=== PATIENT | female | born 1960 | race Caucasian/White ===

== ENCOUNTER 2016-09-27 15:30 | Outpatient (CLI) | payer BC, OTHER | END 2016-09-27 15:31 | disposition home or self-care (01) | DX: M32.10 Systemic lupus erythematosus, organ or system involvement unspecified (principal) ==

== ENCOUNTER 2016-11-21 09:00 | Outpatient (CLI) | payer OTHER | END 2016-11-21 23:59 | disposition home or self-care (01) | DX: M25.561 Pain in right knee (principal) ==

== ENCOUNTER 2016-12-18 13:16 | Outpatient (CLI) | payer OTHER | END 2016-12-18 13:17 | disposition home or self-care (01) | LOC: RT 13:16 | PROVIDERS: ATTEND Orthopaedic Surgery | DX: Z01.818 Encounter for other preprocedural examination (principal) | CPT/HCPCS: 93005 ==

== ENCOUNTER 2017-01-09 14:28 | Outpatient (CLI) | payer OTHER ==
[2017-01-09 19:14] LABS: BASOPHILS % (AUTO) 0.7 %; EOSINOPHILS # (AUTO) 0.1 10^3/uL (0.0-0.7); EOSINOPHILS % (AUTO) 1.2 %; HCT - HEMATOCRIT 41.6 % (37.0-47.0); HGB - HEMOGLOBIN 13.5 g/dL (12.0-16.0); LYMPHOCYTES % (AUTO) 22.1 %; MEAN CORPUSCULAR HEMOGLOBIN 29.9 pg (27.0-31.0); MEAN CORPUSCULAR HGB CONC 32.5 g/dL (32.0-36.0); MEAN CORPUSCULAR VOLUME 92.2 fL (81.0-99.0); MEAN PLATELET VOLUME 8.4 fL (7.9-10.8); MONOCYTES # (AUTO) 0.3 10^3/uL (0.0-1.0); MONOCYTES % (AUTO) 6.5 %; NEUTROPHILS # (AUTO) 3.2 10^3/uL (1.5-6.6); NEUTROPHILS % (AUTO) 69.5 %; NUCLEATED RED BLOOD CELLS AUTO 0.1 /100WBC; RED BLOOD COUNT 4.51 10^6/uL (4.20-5.40); RED CELL DISTRIBUTION WIDTH 13.6 % (12.0-15.0); UNCORRECTED WHITE BLOOD COUNT 4.6 x10^3/uL; WHITE BLOOD COUNT 4.6 x10^3/uL (4.8-10.8)
[2017-01-09 19:25] LABS: ALBUMIN/GLOBULIN RATIO 1.9 (1.0-2.2); BILIRUBIN,TOTAL 0.4 mg/dL (0.2-1.0); BUN - BLOOD UREA NITROGEN 16 mg/dL (6-20); CALCIUM 9.7 mg/dL (8.5-10.3); CARBON DIOXIDE - CO2 30 mmol/L (21-32); CHLORIDE 105 mmol/L (101-111); CHOL/HDL RATIO 3.2 (<4.4); CHOLESTEROL 241 mg/dL; CREATININE 0.9 mg/dL (0.4-1.0); GFR - MDRD 65 (>89); GLUCOSE 85 mg/dL (70-100); HDL CHOLESTEROL 75 mg/dL; LDL/HDL RATIO 1.9 (<4.4); POTASSIUM 3.7 mmol/L (3.5-5.0); SODIUM 142 mmol/L (135-145); TOTAL PROTEIN 7.2 g/dL (6.7-8.2); TRIGLYCERIDES 133 mg/dL; VLDL CHOLESTEROL 27 mg/dL
== END 2017-01-09 14:29 | disposition home or self-care (01) ==
LOC: LAB.WCP 14:28
PROVIDERS: ATTEND Psychiatry & Neurology Psychiatry
DX: F43.12 Post-traumatic stress disorder, chronic (principal); F41.9 Anxiety disorder, unspecified; F90.9 Attention-deficit hyperactivity disorder, unspecified type; G47.00 Insomnia, unspecified
CPT/HCPCS: 36415; 80053; 80061; 85025

== ENCOUNTER 2017-01-18 08:00 | Outpatient (CLI) | payer OTHER ==
[2017-01-18 18:53] LABS: BILIRUBIN,URINE NEGATIVE (NEGATIVE); PH,URINE 6.5 PH (5.0-7.5)
[2017-01-18 18:59] LABS: BASOPHILS % (AUTO) 0.6 %; EOSINOPHILS # (AUTO) 0.1 10^3/uL (0.0-0.7); EOSINOPHILS % (AUTO) 1.3 %; HCT - HEMATOCRIT 39.2 % (37.0-47.0); LYMPHOCYTES # (AUTO) 1.1 10^3/uL (1.5-3.5); LYMPHOCYTES % (AUTO) 25.9 %; MEAN CORPUSCULAR HEMOGLOBIN 30.4 pg (27.0-31.0); MEAN CORPUSCULAR HGB CONC 33.1 g/dL (32.0-36.0); MEAN CORPUSCULAR VOLUME 91.7 fL (81.0-99.0); MEAN PLATELET VOLUME 8.8 fL (7.9-10.8); MONOCYTES # (AUTO) 0.3 10^3/uL (0.0-1.0); MONOCYTES % (AUTO) 7.3 %; NEUTROPHILS # (AUTO) 2.8 10^3/uL (1.5-6.6); NEUTROPHILS % (AUTO) 64.9 %; NUCLEATED RED BLOOD CELLS AUTO 0.1 /100WBC; RED BLOOD COUNT 4.28 10^6/uL (4.20-5.40); RED CELL DISTRIBUTION WIDTH 13.5 % (12.0-15.0); UNCORRECTED WHITE BLOOD COUNT 4.3 x10^3/uL; WHITE BLOOD COUNT 4.3 x10^3/uL (4.8-10.8)
[2017-01-18 19:18] LABS: ALBUMIN/GLOBULIN RATIO 1.7 (1.0-2.2); BILIRUBIN,TOTAL 0.6 mg/dL (0.2-1.0); CALCIUM 9.5 mg/dL (8.5-10.3); CREATININE 0.8 mg/dL (0.4-1.0); POTASSIUM 4.1 mmol/L (3.5-5.0); TOTAL PROTEIN 7.4 g/dL (6.7-8.2)
[2017-01-20 12:03] LABS: COMPLEMENT COMPONENT C3C 135 mg/dL (90-180); COMPLEMENT COMPONENT C4C 30 mg/dL (16-47)
[2017-01-20 21:24] LABS: TEST RESULT REPORT (())
== END 2017-01-18 08:01 | disposition home or self-care (01) ==
LOC: LAB.WCP 08:00
PROVIDERS: ATTEND Internal Medicine Rheumatology
DX: M32.10 Systemic lupus erythematosus, organ or system involvement unspecified (principal); M17.11 Unilateral primary osteoarthritis, right knee
CPT/HCPCS: 36415; 80048; 80053; 81001; 81599; 85025; 85651; 86160; 86225

== ENCOUNTER 2017-01-19 12:53 | Outpatient (CLI) | payer OTHER | END 2017-01-19 12:54 | disposition critical access hospital (66) | LOC: EMS 12:53 | PROVIDERS: ATTEND Surgery | DX: S69.90XA Unspecified injury of unspecified wrist, hand and finger(s), initial encounter (principal); S01.81XA Laceration without foreign body of other part of head, initial encounter; W01.0XXA Fall on same level from slipping, tripping and stumbling without subsequent striking against object, initial encounter; Y93.01 Activity, walking, marching and hiking; Y92.219 Unspecified school as the place of occurrence of the external cause | CPT/HCPCS: A0425; A0429 ==

== ENCOUNTER 2017-01-19 13:09 | Emergency (ER) | payer OTHER ==
[2017-01-19] MEDS ORDERED: HYDROcod/ACETAM 5/325 MG TABLET ONE (14:45)
[2017-01-19] MEDS ORDERED: TETANUS/DIPHTHERIA/PERTUSSIS 0.5 ML SYRINGE IM ONE (14:46)
[2017-01-19] MEDS: HYDROcod/ACETAM 5/325 MG TABLET PO STA (14:48)
[2017-01-19] MEDS: TETANUS/DIPHTHERIA/PERTUSSIS 0.5 ML SYRINGE IM ONE (14:48)
--- NOTE | 2017-01-19 15:32 | XRAY Preliminary Report ---
Exam: XR Wrist 4 View RT IMPRESSION: Normal wrist radiography. [facility] SITE ID: [id number]
--- NOTE | 2017-01-19 15:34 | XRAY Report ---
EXAM: RIGHT WRIST RADIOGRAPHY EXAM DATE: 01/19/2017 03:20 PM. CLINICAL HISTORY: GLF, right wrist injury. COMPARISON: None. TECHNIQUE: 4 views. FINDINGS: Bones: Normal. No fractures or bone lesions. Joints: Normal. No subluxations. Soft Tissues: Normal. No soft tissue swelling. IMPRESSION: Normal wrist radiography. [facility] Referring Provider Line: [phone] SITE ID: [id number]
--- NOTE | 2017-01-19 15:37 | CT Preliminary Report ---
Exam: CT Head W/O IMPRESSION: 1. No acute intracranial abnormality. 2. Encephalomalacia in the left frontal lobe is redemonstrated and similar to the prior brain MRI jennifer ed 02/14/2013 given differences in technique. [facility] SITE ID: [id number]
--- NOTE | 2017-01-19 15:39 | CT Report ---
EXAM: CT HEAD EXAM DATE: 01/19/2017 03:06 PM. CLINICAL HISTORY: Fall, hitting head. Takes Diclopramide. COMPARISON: Brain MRI dated 02/14/2013. TECHNIQUE: Multiaxial CT images were obtained from the foramen magnum to the vertex. IV contrast: Non e. Reformats: Coronal. In accordance with CT protocol optimization, one or more of the following dose reduction techniques w ere utilized for this exam: automated exposure control, adjustment of mA and/or KV based on patient s ize, or use of iterative reconstructive technique. FINDINGS: Parenchyma: Encephalomalacia in the right temporal lobe is redemonstrated and similar to the prior ex amination given differences in technique. No acute intracranial abnormality. The dean-white matter di fferentiation is otherwise well maintained. No mass effect or midline shift. No intracranial hemorrha ge. Extraaxial Spaces: Normal for age. No subdural or epidural collections identified. Ventricles: Normal in size and position. Sinuses: Imaged paranasal sinuses, orbits, and mastoids show no significant abnormality. Bones: No evidence of fracture or calvarial defect. Other: None. IMPRESSION: 1. No acute intracranial abnormality. 2. Encephalomalacia in the left frontal lobe is redemonstrated and similar to the prior brain MRI jennifer ed 02/14/2013 given differences in technique. [facility] Referring Provider Line: [phone] SITE ID: [id number]
--- NOTE | 2017-01-19 16:20 | ED Physician Documentation ---
PD HPI Fall - Stated complaint Stated Complaint: GLF - Chief complaint Chief Complaint: Laceration - History obtained from History obtained from: Patient - History of Present Illness Mechanism of injury: Tripped Fall distance: Standing position Where injury occurred: School Timing - onset: How many hours ago (Just prior to arrival.) Injury(ies) location: Head, Right Upper Extremity Quality of pain: Aching Associated symptoms: No: LOC, AMS, Neck pain, Nausea / vomiting - Additional information Additional information: The patient is a 56-year-old female who tripped on uneven concrete just prior to arrival, hitting her head on the sidewalk. She denies loss of consciousness , nausea or vomiting. In addition to hitting her head, she also complains of pain in her right wrist. She is left-hand dominant. Her last tetanus booster was reportedly about 8 years ago. Her past medical history is significant for lupus and for traumatic brain injury. She reports being on generic form of Plavix. Review of Systems Constitutional: denies: Fever Eyes: denies: Decreased vision Ears: denies: Ear pain Nose: denies: Congestion Throat: denies: Sore throat Cardiac: denies: Chest pain / pressure Respiratory: denies: Dyspnea GI: denies: Abdominal Pain, Nausea, Vomiting : denies: Dysuria, Incontinent Skin: reports: Abrasion (s) (right forehead) Musculoskeletal: reports: Extremity pain (right wrist). 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, Other - Present Medications Home Medications: Ambulatory Orders Medication Instructions Recorded Confirmed Atomoxetine HCl [Strattera] 25 mg PO DAILY 03/31/13 11/23/15 QUEtiapine [SEROquel] 100 mg PO HS 03/31/13 11/23/15 lamoTRIgine [LaMICtal] 200 mg PO DAILY 03/31/13 11/23/15 Hydroxychloroquine [Plaquenil] 200 mg PO BID 05/27/13 11/23/15 Diclofenac Sodium/Misoprostol 75 mg PO DAILY 09/02/13 11/23/15 [Arthrotec EC 75 mg-200 Mcg Tab] amLODIPine [Norvasc] 5 mg PO DAILY 09/02/13 11/23/15 Sertraline HCl [Zoloft] 50 mg PO DAILY 12/02/13 11/23/15 Pilocarpine HCl 5 mg PO TID 06/02/14 11/23/15 Cholecalciferol (Vitamin D3) 5,000 units PO DAILY 10/19/15 11/23/15 [Vitamin D3] HYDROcod/ACETAM 5/325 [Vicodin 1 - 2 ea PO Q6H PRN #20 tablet 01/19/17 5/325] - Allergies Allergies/Adverse Reactions: Allergies Allergy/AdvReac Type Severity Reaction Status Date / Time Sulfa (Sulfonamide Allergy Intermediate Hives Verified 01/19/17 13:35 Antibiotics) amoxicillin Allergy Nausea Verified 01/19/17 13:35 - Living Situation Living Situation: reports: With spouse/s.o. - Social History Does the pt smoke?: No Smoking Status: Never smoker Does the pt drink ETOH?: No Does the pt have substance abuse?: No - Immunizations Immunizations are current?: Yes Immunizations: TDAP current <10years (Last tetanus booster about 8 years ago.) - POLST Patient has POLST: No POLST Status: Full Code PD ED PE NORMAL - Vitals Vital signs reviewed: Yes (Borderline systolic hypertension initially.) - General General: Alert and oriented X 3, Well developed/nourished - HEENT HEENT: PERRL, EOMI, Ears normal, Pharynx benign, Other (There are abrasions at the right side of the forehead and eyebrow. There are no lacerations that warrant suturing. There is no bony step-off palpated.) - Neck Neck: No bony TTP - Cardiac Cardiac: RRR, No murmur - Respiratory Respiratory: No respiratory distress, Clear bilaterally - Abdomen Abdomen: Soft, Non tender - Back Back: No CVA TTP, No spinal TTP - Derm Derm: No rash - Extremities Extremities: Other (There is slight swelling of the right wrist, with tenderness to palpation of the wrist, radially more than ulnarly. She is able to flex and extend the wrist, as well as supinate and forearm. Distal neurovascular is intact.) - Neuro Neuro: Alert and oriented X 3, No motor deficit, Normal speech Results - Vitals Vitals: Oxygen O2 Source Room air - Rads (name of study) Head CT w/o Radiology: Prelim report reviewed, EMP read contemporaneously, See rad report ( No acute intracranial abnormality. Encephalomalacia in the left frontal lobe is redemonstrated and similar to prior brain MRI dated 02/14/2013, given differences in technique.) Right Wrist Radiology: Prelim report reviewed, EMP read contemporaneously, See rad report ( Normal wrist radiography.) PD MEDICAL DECISION MAKING - ED course Complexity details: reviewed old records, reviewed results, re-evaluated patient , considered differential, d/w patient, d/w family ED course: The patient's presentation is significant for a fall that resulted in contusion with abrasion to the right forehead, and contusion/sprain of the right wrist. Head CT without contrast reveals no acute intracranial abnormality, but does reveal right frontal lobe encephalomalacia, unchanged from previous imaging study of 2012. X-ray of the right wrist reveals no bony abnormality. Treatment in the emergency department included administration of Vicodin one tablet orally, and application of a right arm sling. A tetanus booster was administered. She is being discharged with prescription for Vicodin, 20 tablets. I discussed with her and her the expected course of healing, symptomatic treatment and outpatient follow-up, as well as potentially worrisome signs or symptoms that should prompt reevaluation in the emergency department. Departure - Departure Disposition: 01 Home, Self Care Clinical Impression: Fall Qualifiers: Encounter type: initial encounter Qualified Code(s): W19.XXXA - Unspecified fall, initial encounter Forehead contusion Qualifiers: Encounter type: initial encounter Qualified Code(s): S00.83XA - Contusion of other part of head, initial encounter Contusion of right forearm Qualifiers: Encounter type: initial encounter Qualified Code(s): S50.11XA - Contusion of right forearm, initial encounter Condition: Stable Instructions: ED Contusion Scalp, ED Contusion Upper Ext Follow-Up: Fara Fung PA-C [Primary Care Provider] - Prescriptions: HYDROcod/ACETAM 5/325 [Vicodin 5/325] 1 - 2 ea PO Q6H PRN #20 tablet PRN Reason: Pain Comments: Apply icepack to the sore areas intermittently for the next 2 days. You can use Vicodin as prescribed if needed for pain. You can also use ibuprofen, up to 800 mg 3 times daily for its anti- inflammatory effect. Follow up with your primary physician within one to 2 weeks if not completely resolved. Return to the emergency department if you develop increasing headache, persistent vomiting, any sign of infection, or otherwise worsening symptoms. Discharge Date/Time: 01/19/17 16:43
[2017-01-19 16:43] VITALS: BP 141/90
== END 2017-01-19 16:43 | disposition home or self-care (01) ==
LOC: EDUNIT# → ED 13:09
DX: S00.83XA Contusion of other part of head, initial encounter (principal); S50.11XA Contusion of right forearm, initial encounter; S00.81XA Abrasion of other part of head, initial encounter; S63.501A Unspecified sprain of right wrist, initial encounter; W01.0XXA Fall on same level from slipping, tripping and stumbling without subsequent striking against object, initial encounter; Y93.01 Activity, walking, marching and hiking; Y92.219 Unspecified school as the place of occurrence of the external cause; Z23 Encounter for immunization; I10 Essential (primary) hypertension; Z87.820 Personal history of traumatic brain injury; M32.9 Systemic lupus erythematosus, unspecified; M19.90 Unspecified osteoarthritis, unspecified site
CPT/HCPCS: 70450; 90471; 99283

== ENCOUNTER 2017-07-04 16:00 | Outpatient (CLI) | payer BC, OTHER ==
[2017-07-04 18:54] LABS: BILIRUBIN,URINE NEGATIVE (NEGATIVE)
[2017-07-04 19:33] LABS: ALBUMIN/GLOBULIN RATIO 1.6 (1.0-2.2); BILIRUBIN,TOTAL 0.5 mg/dL (0.2-1.0); CALCIUM 9.2 mg/dL (8.5-10.3); CREATININE 0.7 mg/dL (0.4-1.0); POTASSIUM 3.8 mmol/L (3.5-5.0); TOTAL PROTEIN 7.5 g/dL (6.7-8.2)
== END 2017-07-04 16:01 ==
LOC: LAB.WCP 16:00
PROVIDERS: ATTEND Internal Medicine Rheumatology
DX: M32.10 Systemic lupus erythematosus, organ or system involvement unspecified (principal)
CPT/HCPCS: 36415; 80053; 81001; 85651; 86160

== ENCOUNTER 2017-08-09 17:15 | Outpatient (CLI) | payer BC ==
--- NOTE | 2017-08-10 12:11 | Ultrasound Report ---
DATE OF SERVICE: 08/09/2017 ULTRASOUND OF ANKLE BRACHIAL INDEX: 08/09/2017 COMPARISON: None. INDICATION: Calf pain, right. TECHNIQUE: Sonographic evaluation of the lower extremities and brachial arteries. FINDINGS: Peak systolic velocities are as follows in cm per second. RIGHT: Posterior tibial artery 67. Distal peroneal artery 78. LEFT: Posterior tibial artery 72. Distal peroneal artery 130. BLOOD PRESSURES WERE FOLLOWS: RIGHT: Brachial artery 118/53. ORACLE BUSINESS INTELLIGENCE DEVELOPER 146/67. LEFT: Brachial artery 128/68. ORACLE BUSINESS INTELLIGENCE DEVELOPER 143/62. Ankle-brachial indices: 1. Right 1.1. 2. Left 1.1. IMPRESSION: NORMAL ABIs BILATERALLY. TD: 08/10/2017 12:54 [facility]
== END 2017-08-09 17:16 | disposition home or self-care (01) ==
LOC: DI 17:15
PROVIDERS: ATTEND Physician Assistant Medical
DX: M79.661 Pain in right lower leg (principal)
CPT/HCPCS: 93922

== ENCOUNTER 2017-12-20 08:00 | Outpatient (CLI) | payer BC ==
[2017-12-20 12:43] LABS: BASOPHILS % (AUTO) 0.8 %; EOSINOPHILS % (AUTO) 1.4 %; HGB - HEMOGLOBIN 13.4 g/dL (12.0-16.0); LYMPHOCYTES % (AUTO) 24.2 %; MEAN CORPUSCULAR HEMOGLOBIN 28.8 pg (27.0-31.0); MEAN CORPUSCULAR HGB CONC 32.7 g/dL (32.0-36.0); MEAN CORPUSCULAR VOLUME 87.9 fL (81.0-99.0); MEAN PLATELET VOLUME 8.3 fL (7.9-10.8); MONOCYTES % (AUTO) 7.8 %; NEUTROPHILS % (AUTO) 65.8 %; PLT - PLATELET COUNT 184 10^3/uL (130-450); RED BLOOD COUNT 4.67 10^6/uL (4.20-5.40); WHITE BLOOD COUNT 2.8 x10^3/uL (4.8-10.8)
[2017-12-20 12:52] LABS: ABNORMAL LYMPHS % (MANUAL) 0 %; BAND NEUTROPHILS % (MANUAL) 0 %
[2017-12-20 13:02] LABS: ALBUMIN 4.5 g/dL (3.2-5.5); ALBUMIN/GLOBULIN RATIO 1.6 (1.0-2.2); BILIRUBIN,TOTAL 0.6 mg/dL (0.2-1.0); CALCIUM 9.2 mg/dL (8.5-10.3); CREATININE 0.6 mg/dL (0.4-1.0); TOTAL PROTEIN 7.4 g/dL (6.7-8.2)
[2017-12-20 13:04] LABS: BILIRUBIN,URINE NEGATIVE (NEGATIVE); GLUCOSE, URINE (UA) NEGATIVE (NEGATIVE); KETONES,URINE (UA) NEGATIVE (NEGATIVE); LEUKOCYTE ESTERASE, URINE MODERATE (NEGATIVE); NITRITE,URINE NEGATIVE (NEGATIVE); OCCULT BLOOD,URINE NEGATIVE (NEGATIVE); PROTEIN,URINE NEGATIVE (NEGATIVE); UROBILINOGEN,URINE 0.2 (NORMAL) E.U./dL (NORMAL)
[2017-12-20 13:05] LABS: CHOL/HDL RATIO 3.3 (<4.4); CHOLESTEROL 245 mg/dL; CLARITY,URINE HAZY (CLEAR); HDL CHOLESTEROL 74 mg/dL; LDL CHOLESTEROL,CALCULATED 156 mg/dL; LDL/HDL RATIO 2.1 (<4.4); VLDL CHOLESTEROL 15 mg/dL
[2017-12-20 13:21] LABS: RBC,URINE 0-5 /HPF (0-5)
[2017-12-20 13:22] LABS: AMORPHOUS SEDIMENT,UR Marked /LPF; BACTERIA,URINE Few /HPF (None Seen); CRYSTALS,URINE 0-2 Uric Acid /LPF; MUCUS,URINE Marked Strands; SQUAMOUS EPITHELIAL CELL,UR FEW Squamous (<= Few)
[2017-12-20 14:05] LABS: DIFFERENTIAL COMMENT MANUAL DIFFERENTIAL; LYMPHOCYTES # (MANUAL) 0.8 10^3/uL (1.5-3.5); LYMPHOCYTES % (MANUAL) 25 %; MONOCYTES # (MANUAL) 0.2 10^3/uL (0.0-1.0); NEUTROPHILS # (MANUAL) 1.8 10^3/uL (1.5-6.6); NEUTROPHILS % (MANUAL) 64 %
[2017-12-22 12:12] LABS: COMPLEMENT COMPONENT C3C 143 mg/dL (83-193); COMPLEMENT COMPONENT C4C 33 mg/dL (15-57)
== END 2017-12-20 08:01 ==
LOC: LAB.WCP 08:00
PROVIDERS: ATTEND Physician Assistant Medical
DX: Z00.00 Encounter for general adult medical examination without abnormal findings (principal); M32.10 Systemic lupus erythematosus, organ or system involvement unspecified
CPT/HCPCS: 36415; 80053; 80061; 81001; 83721; 84443; 85025; 85651; 86160

== ENCOUNTER 2018-01-09 08:00 | Outpatient (CLI) | payer BC ==
[2018-01-09 19:18] LABS: BASOPHILS % (AUTO) 0.8 %; EOSINOPHILS % (AUTO) 0.6 %; HGB - HEMOGLOBIN 12.9 g/dL (12.0-16.0); LYMPHOCYTES # (AUTO) 1.2 10^3/uL (1.5-3.5); LYMPHOCYTES % (AUTO) 20.6 %; MEAN CORPUSCULAR HEMOGLOBIN 28.7 pg (27.0-31.0); MEAN CORPUSCULAR HGB CONC 32.6 g/dL (32.0-36.0); MEAN CORPUSCULAR VOLUME 87.9 fL (81.0-99.0); MEAN PLATELET VOLUME 8.3 fL (7.9-10.8); MONOCYTES # (AUTO) 0.5 10^3/uL (0.0-1.0); MONOCYTES % (AUTO) 8.7 %; NEUTROPHILS # (AUTO) 3.9 10^3/uL (1.5-6.6); NEUTROPHILS % (AUTO) 69.3 %; PLT - PLATELET COUNT 208 10^3/uL (130-450); RED BLOOD COUNT 4.49 10^6/uL (4.20-5.40); RED CELL DISTRIBUTION WIDTH 14.5 % (12.0-15.0); WHITE BLOOD COUNT 5.6 x10^3/uL (4.8-10.8)
== END 2018-01-09 08:01 | disposition home or self-care (01) ==
LOC: LAB.WCP 08:00
PROVIDERS: ATTEND Internal Medicine Rheumatology
DX: D72.819 Decreased white blood cell count, unspecified (principal)
CPT/HCPCS: 36415; 85025

== ENCOUNTER 2018-04-29 11:00 | Outpatient (CLI) | payer BC ==
[2018-04-29 18:54] LABS: BASOPHILS % (AUTO) 0.4 %; EOSINOPHILS % (AUTO) 0.3 %; HGB - HEMOGLOBIN 13.3 g/dL (12.0-16.0); LYMPHOCYTES # (AUTO) 0.8 10^3/uL (1.5-3.5); LYMPHOCYTES % (AUTO) 15.8 %; MEAN CORPUSCULAR HEMOGLOBIN 29.1 pg (27.0-31.0); MEAN CORPUSCULAR HGB CONC 32.7 g/dL (32.0-36.0); MEAN CORPUSCULAR VOLUME 89.1 fL (81.0-99.0); MEAN PLATELET VOLUME 8.3 fL (7.9-10.8); MONOCYTES # (AUTO) 0.2 10^3/uL (0.0-1.0); MONOCYTES % (AUTO) 3.6 %; NEUTROPHILS # (AUTO) 4.2 10^3/uL (1.5-6.6); NEUTROPHILS % (AUTO) 79.9 %; PLT - PLATELET COUNT 217 10^3/uL (130-450); RED BLOOD COUNT 4.57 10^6/uL (4.20-5.40); RED CELL DISTRIBUTION WIDTH 14.3 % (12.0-15.0); WHITE BLOOD COUNT 5.2 x10^3/uL (4.8-10.8)
[2018-04-29 18:55] LABS: BILIRUBIN,URINE NEGATIVE (NEGATIVE); GLUCOSE, URINE (UA) NEGATIVE (NEGATIVE); KETONES,URINE (UA) TRACE mg/dL (NEGATIVE); LEUKOCYTE ESTERASE, URINE MODERATE (NEGATIVE); NITRITE,URINE NEGATIVE (NEGATIVE); OCCULT BLOOD,URINE NEGATIVE (NEGATIVE); PROTEIN,URINE TRACE mg/dL (NEGATIVE); UROBILINOGEN,URINE 0.2 (NORMAL) E.U./dL (NORMAL)
[2018-04-29 19:15] LABS: CLARITY,URINE HAZY (CLEAR)
[2018-04-29 19:16] LABS: BACTERIA,URINE Few /HPF (None Seen); CRYSTALS,URINE >50 Calcium Oxalate /LPF; RBC,URINE 0-5 /HPF (0-5); SQUAMOUS EPITHELIAL CELL,UR FEW Squamous (<= Few)
[2018-04-29 19:18] LABS: ALBUMIN 4.6 g/dL (3.2-5.5); ALBUMIN/GLOBULIN RATIO 1.5 (1.0-2.2); ALKALINE PHOSPHATASE 87 IU/L (42-121); ALT ALANINE AMINOTRANSFERASE < 10 IU/L (10-60); AST ASPARTATE AMINOTRANSFERASE 24 IU/L (10-42); BILIRUBIN,TOTAL 0.5 mg/dL (0.2-1.0); BUN - BLOOD UREA NITROGEN 16 mg/dL (6-20); CALCIUM 9.4 mg/dL (8.5-10.3); CARBON DIOXIDE - CO2 28 mmol/L (21-32); CHLORIDE 101 mmol/L (101-111); CREATININE 0.9 mg/dL (0.4-1.0); GFR - MDRD 64 (>89); GLUCOSE 76 mg/dL (70-100); SODIUM 139 mmol/L (135-145); TOTAL PROTEIN 7.6 g/dL (6.7-8.2)
[2018-04-29 19:40] LABS: CHOL/HDL RATIO 2.7 (<4.4); CHOLESTEROL 226 mg/dL; HDL CHOLESTEROL 85 mg/dL; LDL CHOLESTEROL,CALCULATED 125 mg/dL; LDL/HDL RATIO 1.5 (<4.4); VLDL CHOLESTEROL 16 mg/dL
[2018-04-29 20:10] LABS: RHEUMATOID FACTOR NEGATIVE (Negative)
[2018-05-01 15:50] LABS: COMPLEMENT COMPONENT C3C 157 mg/dL (83-193); COMPLEMENT COMPONENT C4C 32 mg/dL (15-57)
[2018-05-01 21:54] LABS: CYCLIC CITRULL PEPTIDE CCP IGG <16 UNITS
== END 2018-04-29 11:01 | disposition home or self-care (01) ==
LOC: LAB.WCP 11:00
PROVIDERS: ATTEND Internal Medicine Rheumatology
DX: M32.10 Systemic lupus erythematosus, organ or system involvement unspecified (principal); M25.50 Pain in unspecified joint
CPT/HCPCS: 36415; 80053; 80061; 81001; 83721; 85025; 85651; 86160; 86200; 86430

== ENCOUNTER 2018-09-20 15:22 | Outpatient (CLI) | payer BC ==
--- NOTE | 2018-09-24 08:39 | Mammography Report ---
Reason: SCREENING MAMMO Procedure Date: 09/20/2018 Accession Number: [id number] / [id number] Procedure: MGN - Screening Mammo Dig Bilat CPT Code: FULL RESULT: EXAM: Screening Mammo Dig Bilat DATE: 09/20/2018 3:51 PM CLINICAL HISTORY: Screening encounter. History of late childbearing. TECHNIQUE: Bilateral CC and MLO views were obtained. COMPARISON: 07/15/2015 through 05/28/2010. FINDINGS: The breasts demonstrate scattered fibroglandular densities bilaterally. In the left breast on the CC view 8 cm deep to the nipple laterally is a developing asymmetry with possible correlate 8 cm from the nipple in the upper left breast on the MLO view which requires additional spot views and possibly ultrasound for further characterization. No suspicious masses, clustered microcalcifications, or regions of architectural distortion are identified. IMPRESSION: Incomplete examination RECOMMENDATION: Additional evaluation of the left lateral breast with spot views and possibly ultrasound as above. BIRADS CATEGORY 0: Incomplete examination STANDARD QUALIFYING STATEMENTS: 1. This examination was reviewed with the aid of Computer-Aided Detection (CAD). 2. A negative or benign imaging report should not delay biopsy if clinically suspicious findings are present. Consider surgical consultation if warrented. More than 5% of cancers are not identified by imaging. 3. Dense breasts may obscure an underlying neoplasm.
== END 2018-09-20 15:23 | disposition home or self-care (01) ==
LOC: DI.N 15:22
DX: Z12.31 Encounter for screening mammogram for malignant neoplasm of breast (principal); R92.8 Other abnormal and inconclusive findings on diagnostic imaging of breast
CPT/HCPCS: 77067

== ENCOUNTER 2018-10-04 07:48 | Outpatient (CLI) | payer BC ==
--- NOTE | 2018-10-04 09:18 | Mammography Report ---
Reason: 6 MO F/U - ABN MAMMO Procedure Date: 10/04/2018 Accession Number: [id number] / [id number] Procedure: PASTORA - Diag Special Views Dig LT CPT Code: FULL RESULT: EXAM: Diag Special Views Dig LT DATE: 10/04/2018 8:44 AM CLINICAL HISTORY: Diagnostic examination. History of late childbearing. The patient returns for further evaluation of a left breast developing asymmetry. TECHNIQUE: Left breast CC, spot CC, ML and spot MLO views were obtained. COMPARISON: 09/20/2018 through 05/28/2010. FINDINGS: The left breast demonstrates scattered fibroglandular elements. The previously identified developing asymmetry 8 cm from the left breast nipple resolves with spot views and is not present on 3-D imaging, evaluation is consistent with benign overlap of normal breast tissue. No suspicious masses, architectural distortion or calcifications are identified. IMPRESSION: Benign findings RECOMMENDATION: Recommend routine annual Screening mammography unless otherwise clinically indicated. BIRADS CATEGORY 2: Benign findings STANDARD QUALIFYING STATEMENTS: 1. This examination was not reviewed with the aid of Computer-Aided Detection (CAD). 2. A negative or benign imaging report should not delay biopsy if clinically suspicious findings are present. Consider surgical consultation if warrented. More than 5% of cancers are not identified by imaging. 3. Dense breasts may obscure an underlying neoplasm. 4. This examination was reviewed with the aid of 3D imaging (tomography).
== END 2018-10-04 07:49 | disposition home or self-care (01) ==
LOC: DI 07:48
PROVIDERS: ATTEND Physician Assistant Medical
DX: N63.20 Unspecified lump in the left breast, unspecified quadrant (principal); N64.89 Other specified disorders of breast; M32.10 Systemic lupus erythematosus, organ or system involvement unspecified
CPT/HCPCS: 36415; 80053; 81001; 85025; 85651; 86160

== ENCOUNTER 2018-10-04 08:49 | Outpatient (CLI) | payer BC ==
[2018-10-04 09:28] LABS: BASOPHILS % (AUTO) 0.8 %; EOSINOPHILS # (AUTO) 0.1 10^3/uL (0.0-0.7); HGB - HEMOGLOBIN 13.5 g/dL (12.0-16.0); LYMPHOCYTES % (AUTO) 33.8 %; MEAN CORPUSCULAR HEMOGLOBIN 28.3 pg (27.0-31.0); MEAN CORPUSCULAR HGB CONC 32.6 g/dL (32.0-36.0); MEAN CORPUSCULAR VOLUME 86.7 fL (81.0-99.0); MEAN PLATELET VOLUME 7.8 fL (7.9-10.8); MONOCYTES # (AUTO) 0.3 10^3/uL (0.0-1.0); MONOCYTES % (AUTO) 8.5 %; NEUTROPHILS # (AUTO) 1.6 10^3/uL (1.5-6.6); NEUTROPHILS % (AUTO) 54.9 %; PLT - PLATELET COUNT 193 10^3/uL (130-450); RED BLOOD COUNT 4.77 10^6/uL (4.20-5.40)
[2018-10-04 09:35] LABS: BILIRUBIN,URINE NEGATIVE (NEGATIVE); GLUCOSE, URINE (UA) NEGATIVE (NEGATIVE); KETONES,URINE (UA) NEGATIVE (NEGATIVE); LEUKOCYTE ESTERASE, URINE SMALL (NEGATIVE); NITRITE,URINE NEGATIVE (NEGATIVE); OCCULT BLOOD,URINE NEGATIVE (NEGATIVE); PROTEIN,URINE NEGATIVE (NEGATIVE); UROBILINOGEN,URINE 0.2 (NORMAL) E.U./dL (NORMAL)
[2018-10-04 09:53] LABS: CLARITY,URINE CLEAR (CLEAR); RBC,URINE 0-5 /HPF (0-5)
[2018-10-04 09:54] LABS: BACTERIA,URINE Rare /HPF (None Seen); MUCUS,URINE Few Strands; SQUAMOUS EPITHELIAL CELL,UR FEW Squamous (<= Few)
[2018-10-04 09:56] LABS: ALBUMIN 4.5 g/dL (3.2-5.5); ALBUMIN/GLOBULIN RATIO 1.3 (1.0-2.2); BILIRUBIN,TOTAL 0.5 mg/dL (0.2-1.0); CALCIUM 9.4 mg/dL (8.5-10.3); CREATININE 0.6 mg/dL (0.4-1.0); TOTAL PROTEIN 7.9 g/dL (6.7-8.2)
== END 2018-10-04 08:50 | disposition home or self-care (01) ==
LOC: LAB 08:49
PROVIDERS: ATTEND Internal Medicine Rheumatology
DX: M32.10 Systemic lupus erythematosus, organ or system involvement unspecified (principal)
CPT/HCPCS: 36415; 80053; 81001; 85025; 85651; 86160

== ENCOUNTER 2018-10-23 08:00 | Outpatient (CLI) | payer BC ==
[2018-10-23 19:19] LABS: BASOPHILS % (AUTO) 0.6 %; EOSINOPHILS % (AUTO) 1.1 %; HGB - HEMOGLOBIN 13.9 g/dL (12.0-16.0); LYMPHOCYTES # (AUTO) 1.1 10^3/uL (1.5-3.5); LYMPHOCYTES % (AUTO) 31.6 %; MEAN CORPUSCULAR HEMOGLOBIN 28.5 pg (27.0-31.0); MEAN CORPUSCULAR HGB CONC 32.5 g/dL (32.0-36.0); MEAN CORPUSCULAR VOLUME 87.8 fL (81.0-99.0); MEAN PLATELET VOLUME 8.1 fL (7.9-10.8); MONOCYTES # (AUTO) 0.3 10^3/uL (0.0-1.0); MONOCYTES % (AUTO) 8.8 %; NEUTROPHILS # (AUTO) 1.9 10^3/uL (1.5-6.6); NEUTROPHILS % (AUTO) 57.9 %; PLT - PLATELET COUNT 199 10^3/uL (130-450); RED BLOOD COUNT 4.88 10^6/uL (4.20-5.40); RED CELL DISTRIBUTION WIDTH 14.6 % (12.0-15.0); WHITE BLOOD COUNT 3.3 x10^3/uL (4.8-10.8)
== END 2018-10-23 08:01 | disposition home or self-care (01) ==
LOC: LAB.WCP 08:00
PROVIDERS: ATTEND Internal Medicine Rheumatology
DX: D72.819 Decreased white blood cell count, unspecified (principal)
CPT/HCPCS: 36415; 85025

== ENCOUNTER 2019-03-12 08:00 | Outpatient (CLI) | payer BC ==
[2019-03-12 18:34] LABS: BILIRUBIN,URINE NEGATIVE (NEGATIVE); GLUCOSE, URINE (UA) NEGATIVE (NEGATIVE); KETONES,URINE (UA) NEGATIVE (NEGATIVE); LEUKOCYTE ESTERASE, URINE NEGATIVE (NEGATIVE); NITRITE,URINE NEGATIVE (NEGATIVE); OCCULT BLOOD,URINE NEGATIVE (NEGATIVE); PROTEIN,URINE NEGATIVE (NEGATIVE); UROBILINOGEN,URINE 0.2 (NORMAL) E.U./dL (NORMAL)
[2019-03-12 18:43] LABS: BASOPHILS % (AUTO) 0.9 %; EOSINOPHILS # (AUTO) 0.1 10^3/uL (0.0-0.7); EOSINOPHILS % (AUTO) 2.8 %; HGB - HEMOGLOBIN 13.9 g/dL (12.0-16.0); LYMPHOCYTES # (AUTO) 1.1 10^3/uL (1.5-3.5); LYMPHOCYTES % (AUTO) 34.3 %; MEAN CORPUSCULAR HEMOGLOBIN 28.1 pg (27.0-31.0); MEAN CORPUSCULAR HGB CONC 30.3 g/dL (32.0-36.0); MEAN CORPUSCULAR VOLUME 92.5 fL (81.0-99.0); MEAN PLATELET VOLUME 10.2 fL (7.9-10.8); MONOCYTES # (AUTO) 0.3 10^3/uL (0.0-1.0); MONOCYTES % (AUTO) 8.8 %; NEUTROPHILS # (AUTO) 1.7 10^3/uL (1.5-6.6); NEUTROPHILS % (AUTO) 52.9 %; PLT - PLATELET COUNT 157 10^3/uL (130-450); RED BLOOD COUNT 4.95 10^6/uL (4.20-5.40); RED CELL DISTRIBUTION WIDTH 14.2 % (12.0-15.0); WHITE BLOOD COUNT 3.2 x10^3/uL (4.8-10.8)
[2019-03-12 18:45] LABS: ALBUMIN 4.3 g/dL (3.2-5.5); ALBUMIN/GLOBULIN RATIO 1.3 (1.0-2.2); ALKALINE PHOSPHATASE 71 IU/L (42-121); ALT ALANINE AMINOTRANSFERASE < 10 IU/L (10-60); AST ASPARTATE AMINOTRANSFERASE 25 IU/L (10-42); BILIRUBIN,TOTAL 0.3 mg/dL (0.2-1.0); BUN - BLOOD UREA NITROGEN 11 mg/dL (6-20); CALCIUM 9.2 mg/dL (8.5-10.3); CARBON DIOXIDE - CO2 27 mmol/L (21-32); CHLORIDE 102 mmol/L (101-111); CREATININE 0.7 mg/dL (0.4-1.0); GFR - MDRD 86 (>89); GLUCOSE 84 mg/dL (70-100); SODIUM 138 mmol/L (135-145); TOTAL PROTEIN 7.5 g/dL (6.7-8.2)
[2019-03-12 19:24] LABS: CLARITY,URINE CLEAR (CLEAR)
[2019-03-12 19:25] LABS: BACTERIA,URINE None Seen /HPF (None Seen); CRYSTALS,URINE 6-10 Calcium Oxalate /LPF; RBC,URINE None Seen /HPF (0-5); SQUAMOUS EPITHELIAL CELL,UR NONE SEEN (<= Few)
[2019-03-14 13:52] LABS: COMPLEMENT COMPONENT C3C 163 mg/dL (83-193); COMPLEMENT COMPONENT C4C 35 mg/dL (15-57)
[2019-03-14 15:26] LABS: DNA (DS) ANTIBODY <1 IU/mL
== END 2019-03-12 23:59 | disposition home or self-care (01) ==
LOC: LAB.WCP 08:00
PROVIDERS: ATTEND Internal Medicine Rheumatology
DX: M32.10 Systemic lupus erythematosus, organ or system involvement unspecified (principal); M06.4 Inflammatory polyarthropathy
CPT/HCPCS: 36415; 80053; 81001; 85025; 85651; 86160; 86225

== ENCOUNTER 2020-03-27 07:13 | Emergency (ER) | payer BC, OTHER ==
[2020-03-27 08:14] LABS: BASOPHILS % (AUTO) 1.2 %; EOSINOPHILS % (AUTO) 3.6 %; HGB - HEMOGLOBIN 13.4 g/dL (12.0-16.0); MEAN CORPUSCULAR HEMOGLOBIN 29.6 pg (27.0-31.0); MEAN CORPUSCULAR HGB CONC 32.1 g/dL (32.0-36.0); MEAN CORPUSCULAR VOLUME 92.3 fL (81.0-99.0); MEAN PLATELET VOLUME 13.3 fL (7.9-10.8); MONOCYTES % (AUTO) 8.7 %; NEUTROPHILS % (AUTO) 55.1 %; RED BLOOD COUNT 4.52 10^6/uL (4.20-5.40); RED CELL DISTRIBUTION WIDTH 12.4 % (12.0-15.0); WHITE BLOOD COUNT 2.5 x10^3/uL (4.8-10.8)
--- NOTE | 2020-03-27 08:26 | ED Physician Documentation ---
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 The blood work was reported to the patient this morning and she was asked to come to the emergency department with a platelet count of 6000. She denies any bleeding and denies any current illness or recent illness. She states she has generally been feeling quite well but has noticed the easy bruising. Review of Systems Constitutional: denies: Fever, Chills, Myalgias, Fatigue Eyes: denies: Decreased vision Ears: denies: Ear pain Nose: denies: Rhinorrhea / runny nose, Congestion Throat: denies: Sore throat Cardiac: denies: Chest pain / pressure, Palpitations Respiratory: denies: Dyspnea, Cough GI: denies: Abdominal Pain, Nausea, Vomiting, Constipation, Diarrhea : denies: Dysuria, Frequency Skin: reports: Other (bruising to ext.). 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, 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 - Present Medications Home Medications: Ambulatory Orders Medication Instructions Recorded Confirmed Atomoxetine HCl [Strattera] 25 mg PO DAILY 03/31/13 11/23/15 QUEtiapine [SEROquel] 25 mg PO HS 03/31/13 11/23/15 lamoTRIgine [LaMICtal] 200 mg PO DAILY 03/31/13 11/23/15 Hydroxychloroquine [Plaquenil] 200 mg PO BID 05/27/13 11/23/15 amLODIPine [Norvasc] 5 mg PO DAILY 09/02/13 11/23/15 Sertraline HCl [Zoloft] 50 mg PO DAILY 12/02/13 11/23/15 Pilocarpine HCl 5 mg PO TID 06/02/14 11/23/15 Cholecalciferol (Vitamin D3) 5,000 units PO DAILY 10/19/15 11/23/15 [Vitamin D3] - Allergies Allergies/Adverse Reactions: Allergies Allergy/AdvReac Type Severity Reaction Status Date / Time Sulfa (Sulfonamide Allergy Intermediate Hives Verified 03/27/20 07:20 Antibiotics) amoxicillin Allergy Nausea Verified 03/27/20 07:20 - Social History Does the pt smoke?: No Smoking Status: Never smoker Does the pt drink ETOH?: No Does the pt have substance abuse?: No - Immunizations Immunizations are current?: Yes Immunizations: TDAP current <10years (Last tetanus booster about 8 years ago.) - POLST Patient has POLST: No POLST Status: Full Code PD ED PE NORMAL - Vitals Vital signs reviewed: Yes (normal ) - General General: Alert and oriented X 3, No acute distress, Well developed/nourished - HEENT HEENT: Atraumatic, PERRL, EOMI - Neck Neck: Supple, no meningeal sign, No bony TTP - Cardiac Cardiac: RRR, No murmur - Respiratory Respiratory: No respiratory distress, Clear bilaterally - Abdomen Abdomen: Soft, Non tender, No organomegaly - Back Back: No CVA TTP, No spinal TTP - Derm Derm: Normal color, Warm and dry, No rash, Other (There are bruises to the right patella about 3cm round and bruises to the left and right forearm smaller and numbering about 4 on the right and 3 on the left a bruise to the right lateral thigh and tiny peticheia on the calves. ) - Extremities Extremities: No deformity, No edema - Neuro Neuro: Alert and oriented X 3, network analyst 2-12 intact, No motor deficit, No sensory deficit, Normal speech Eye Opening: Spontaneous Motor: Obeys Commands Verbal: Oriented GCS Score: 15 - Psych Psych: Normal mood, Normal affect Results - Vitals Vitals: Vital Signs - 24 hr 03/27/20 03/27/20 03/27/20 07:18 09:20 11:00 Temperature 36.5 C 37.0 C Heart Rate 74 86 80 Respiratory 16 18 20 Rate Blood Pressure 128/73 113/59 L 124/74 O2 Saturation 99 99 100 03/27/20 11:59 Temperature 37.0 C Heart Rate 82 Respiratory 18 Rate Blood Pressure 134/79 H O2 Saturation 99 Oxygen O2 Source Room air - Labs Labs: Laboratory Tests 03/27/20 03/27/20 03/27/20 07:59 07:59 08:27 WBC 2.5 L RBC 4.52 Hgb 13.4 Hct 41.7 MCV 92.3 MCH 29.6 MCHC 32.1 RDW 12.4 Plt Count 7 L* MPV 13.3 H Neut # (Auto) Not Reportable Lymph # (Auto) Not Reportable [place] # (Auto) Not Reportable Eos # (Auto) Not Reportable Baso # (Auto) Not Reportable Absolute Nucleated RBC Not Reportable Total Counted 100 Band Neuts % (Manual) 3 Reactive Lymphs % (Man) 2 Abnorm Lymph % (Manual) 0 Nucleated RBC % Not Reportable Neutrophils # (Manual) 1.4 L Lymphocytes # (Manual) 0.8 L Monocytes # (Manual) 0.3 Eosinophils # (Manual) 0.1 Basophils # (Manual) 0.0 Differential Comment MANUAL DIFFERENTIAL WBC Morphology NORMAL APPEARANCE Platelet Estimate DECREASED (<130,000) Platelet Morphology RARE GIANT PLATELETS RBC Morph Micro Appear NORMAL APPEARANCE Sodium 138 Potassium 3.6 Chloride 104 Carbon Dioxide 28 Anion Gap 6.0 BUN 10 Creatinine 0.8 Estimated GFR (MDRD) 73 L Glucose 86 Calcium 8.8 Total Bilirubin 0.4 AST 23 ALT < 10 L Alkaline Phosphatase 64 Total Protein 6.8 Albumin 4.0 Globulin 2.8 Albumin/Globulin Ratio 1.4 Lipase 41 Urine Color YELLOW Urine Clarity CLEAR Urine pH 7.0 Ur Specific House 1.010 Urine Protein NEGATIVE Urine Glucose (UA) NEGATIVE Urine Ketones NEGATIVE Urine Occult Blood NEGATIVE Urine Nitrite NEGATIVE Urine Bilirubin NEGATIVE Urine Urobilinogen 0.2 (NORMAL) Ur Leukocyte Esterase SMALL H Urine RBC 0-5 Urine WBC 4-5 Ur Squamous Epith Cells RARE Squamous Urine Bacteria None Seen Ur Microscopic Review INDICATED Urine Culture Comments INDICATED PD MEDICAL DECISION MAKING - ED course Complexity details: reviewed old records, reviewed results, re-evaluated patient, considered differential, d/w patient, d/w family, d/w obiee consultant Mariann: [facility] recommends transfer for inpatient treatment with hematology. ) ED course: 59-year-old female with a history of SLE and ITP has developed symptoms of ITP again and her platelet count this morning is 7000. She has been having some bruising for about 2 weeks. She does not have any evidence of bleeding anywhere. She is administered decadron 40mg IV and arrangements are made for the patient to be transferred to [facility] to be admitted to the floor for more aggressive treatment. Departure - Departure Disposition: 02 Transfer Acute Care Hosp Clinical Impression: Acute ITP Condition: Stable Discharge Date/Time: 03/27/20 12:00
[2020-03-27 08:27] LABS: ALBUMIN/GLOBULIN RATIO 1.4 (1.0-2.2); ALKALINE PHOSPHATASE 64 IU/L (42-121); ALT ALANINE AMINOTRANSFERASE < 10 IU/L (10-60); AST ASPARTATE AMINOTRANSFERASE 23 IU/L (10-42); BILIRUBIN,TOTAL 0.4 mg/dL (0.2-1.0); BUN - BLOOD UREA NITROGEN 10 mg/dL (6-20); CALCIUM 8.8 mg/dL (8.5-10.3); CARBON DIOXIDE - CO2 28 mmol/L (21-32); CHLORIDE 104 mmol/L (101-111); CREATININE 0.8 mg/dL (0.4-1.0); GLUCOSE 86 mg/dL (70-100); LIPASE 41 U/L (22-51); SODIUM 138 mmol/L (135-145); TOTAL PROTEIN 6.8 g/dL (6.7-8.2)
[2020-03-27 08:35] LABS: BILIRUBIN,URINE NEGATIVE (NEGATIVE); GLUCOSE, URINE (UA) NEGATIVE (NEGATIVE); KETONES,URINE (UA) NEGATIVE (NEGATIVE); LEUKOCYTE ESTERASE, URINE SMALL (NEGATIVE); NITRITE,URINE NEGATIVE (NEGATIVE); OCCULT BLOOD,URINE NEGATIVE (NEGATIVE); PROTEIN,URINE NEGATIVE (NEGATIVE); UROBILINOGEN,URINE 0.2 (NORMAL) E.U./dL (NORMAL)
[2020-03-27 08:38] LABS: CLARITY,URINE CLEAR (CLEAR)
[2020-03-27 08:42] LABS: PLT - PLATELET COUNT 7 10^3/uL (130-450)
[2020-03-27 08:43] LABS: ABNORMAL LYMPHS % (MANUAL) 0 %
[2020-03-27 08:48] LABS: BAND NEUTROPHILS % (MANUAL) 3 %; BASOPHILS % (MANUAL) 1 %; EOSINOPHILS # (MANUAL) 0.1 10^3/uL (0-0.7); LYMPHOCYTES # (MANUAL) 0.8 10^3/uL (1.5-3.5); LYMPHOCYTES % (MANUAL) 29 %; MONOCYTES # (MANUAL) 0.3 10^3/uL (0.0-1.0)
[2020-03-27 08:49] LABS: DIFFERENTIAL COMMENT MANUAL DIFFERENTIAL; PLATELET ESTIMATE, MANUAL DECREASED (<130,000) (NORMAL); PLATELET MORPHOLOGY RARE GIANT PLATELETS (NORMAL); RBC MORPHOLOGY (MULTIPLE) NORMAL APPEARANCE (NORMAL)
[2020-03-27 08:53] LABS: BACTERIA,URINE None Seen /HPF (None Seen); RBC,URINE 0-5 /HPF (0-5); SQUAMOUS EPITHELIAL CELL,UR RARE Squamous (<= Few)
[2020-03-27] MEDS ORDERED: DEXAMETHASONE 10 MG/ML VIAL IVP STA (09:48)
[2020-03-27 12:00] VITALS: BP 134/79
== END 2020-03-27 12:00 | disposition short-term general hospital (02) ==
LOC: ED 07:13
DX: D69.3 Immune thrombocytopenic purpura (principal); M32.9 Systemic lupus erythematosus, unspecified
CPT/HCPCS: 36415; 80053; 81001; 81003; 83690; 85025; 87086; 96374; 99284

== ENCOUNTER 2020-03-31 12:26 | Emergency (ER) | payer OTHER ==
--- NOTE | 2020-03-31 12:57 | ED Physician Documentation ---
History of Present Illness - Stated complaint Stated Complaint: ITP FOLLOWUP - Chief complaint Chief Complaint: General - Additonal information Additional information: 59-year-old female comes to the emergency department for follow-up of her ITP. She was seen here 5 days ago on the advice of her provider who had noted a low platelet count. Her platelets here in the emergency department were 7000. She was given 40 mg of dexamethasone and transferred to [facility] for further evaluation and treatment as we do not have the capacity to give platelets here at [facility]. Patient reports that she was kept ov ernight in the hospital and discharged with a prescription for dexamethasone. She has taken 40 mg daily for the last 4 days. However she reports that she is now no longer willing to take the dexamethasone as she is having a lot of stomach upset and discomfort. She denies any melena or hematochezia. She has had no vomiting or hematemesis. She denies hematuria. She has had no suddenly severe headaches. Past medical history most significant for history of lupus as well as ITP. She was last treated in 2011 for ITP and reports receiving approximately 18 months of prednisone therapy. Review of Systems Constitutional: denies: Fever, Chills Eyes: denies: Loss of vision, Photophobia Nose: denies: Rhinorrhea / runny nose, Epistaxis Cardiac: denies: Chest pain / pressure, Palpitations, Pedal edema, Calf pain Respiratory: denies: Dyspnea, Cough, Hemoptysis GI: reports: Abdominal Pain (epigastric). denies: Nausea, Vomiting, Diarrhea, Hematemesis, Bloody / black stool : denies: Dysuria, Hematuria, Vaginal bleeding Skin: reports: Other (Bruising in various stages of healing seen on right posterior calf left arm and right arm). 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, Other - Present Medications Home Medications: Ambulatory Orders Medication Instructions Recorded Confirmed Atomoxetine HCl [Strattera] 25 mg PO DAILY 03/31/13 11/23/15 QUEtiapine [SEROquel] 25 mg PO HS 03/31/13 11/23/15 lamoTRIgine [LaMICtal] 200 mg PO DAILY 03/31/13 11/23/15 Hydroxychloroquine [Plaquenil] 200 mg PO BID 05/27/13 11/23/15 amLODIPine [Norvasc] 5 mg PO DAILY 09/02/13 11/23/15 Sertraline HCl [Zoloft] 50 mg PO DAILY 12/02/13 11/23/15 Pilocarpine HCl 5 mg PO TID 06/02/14 11/23/15 Cholecalciferol (Vitamin D3) 5,000 units PO DAILY 10/19/15 11/23/15 [Vitamin D3] - Allergies Allergies/Adverse Reactions: Allergies Allergy/AdvReac Type Severity Reaction Status Date / Time Sulfa (Sulfonamide Allergy Intermediate Hives Verified 03/31/20 12:37 Antibiotics) amoxicillin Allergy Nausea Verified 03/31/20 12:37 - Social History Does the pt smoke?: No Smoking Status: Never smoker Does the pt drink ETOH?: No Does the pt have substance abuse?: No - Immunizations Immunizations are current?: Yes Immunizations: TDAP current <10years (Last tetanus booster about 8 years ago.) - POLST Patient has POLST: No POLST Status: Full Code PD ED PE EXPANDED - General General: Alert, No acute distress, Well developed/nourished - HEENT HEENT: Atraumatic, PERRL, Moist mucous membranes. No: Bilateral epistaxis, Soft palate petecchiae - Eyes Eyes: PERRL, Normal accommodation, Nl conjunctiva/sclera - Neck Neck: Supple w/out meningeal sx, No tenderness. No: Adenopathy - Cardiac Cardiac: Regular Rate, Regular Rhythm, Radial strong equal, Femoral strong equal, Pedal strong equal, Cap refill < 2 sec. No: Murmur Present - Respiratory Respiratory: Clear to ausultation annie. No: Distress, Labored - Abdomen Abdomen: Normal Bowel sounds, Tender to palpation, Epigastric (mild epigastric TTP) - Back Back: Normal exam. No: Vertebral tenderness, Soft tissue tenderness, CVA TTP right, CVA TTP left - Derm Derm: Normal color, Warm and dry, Bruising (arms, right posterior calf). No: Rash, Petecchiae, Purpura - Extremities Extremities: Normal - Neuro Neuro: Alert and Oriented X 3, CNII-XII intact, Cerebellar nl, Normal gait, Normal finger nose, Normal speech - GCS Eye Opening: Spontaneous Motor: Obeys Commands Verbal: Oriented Total: 15 Results - Vitals Vitals: Vital Signs - 24 hr 03/31/20 03/31/20 03/31/20 12:32 14:37 16:00 Temperature 36.8 C Heart Rate 79 72 75 Respiratory 16 18 17 Rate Blood Pressure 120/73 122/74 140/89 H O2 Saturation 100 100 98 Oxygen O2 Source Room air - Labs Labs: Laboratory Tests 03/31/20 03/31/20 03/31/20 12:50 12:50 13:05 WBC 5.6 RBC 5.06 Hgb 15.3 Hct 46.6 MCV 92.1 MCH 30.2 MCHC 32.8 RDW 12.6 Plt Count 7 L* Neut # (Auto) 2.4 Lymph # (Auto) 2.8 Bond # (Auto) 0.3 Eos # (Auto) 0.1 Baso # (Auto) 0.0 Absolute Nucleated RBC 0.00 Nucleated RBC % 0.0 Manual Slide Review Indicated Platelet Estimate DECREASED (<130,000) Platelet Morphology NORMAL APPEARANCE Sodium 137 Potassium 3.8 Chloride 99 L Carbon Dioxide 29 Anion Gap 9.0 BUN 14 Creatinine 0.8 Estimated GFR (MDRD) 73 L Glucose 83 Calcium 9.1 Total Bilirubin 0.5 AST 18 ALT 10 Alkaline Phosphatase 66 Total Protein 7.6 Albumin 4.6 Globulin 3.0 Albumin/Globulin Ratio 1.5 Lipase 840 H Urine Color YELLOW Urine Clarity HAZY Urine pH 7.0 Ur Specific [place] 1.020 Urine Protein TRACE Urine Glucose (UA) NEGATIVE Urine Ketones NEGATIVE Urine Occult Blood NEGATIVE Urine Nitrite NEGATIVE Urine Bilirubin NEGATIVE Urine Urobilinogen 0.2 (NORMAL) Ur Leukocyte Esterase MODERATE H Urine RBC None Seen Urine WBC 4-5 Ur Squamous Epith Cells RARE Squamous Urine Bacteria Rare Ur Microscopic Review INDICATED Urine Culture Comments INDICATED PD MEDICAL DECISION MAKING - ED course Complexity details: reviewed old records, reviewed results, re-evaluated patient, considered differential, d/w patient, d/w family ED course: 59-year-old female with a history of lupus as well as ITP here for follow-up of her recurrent ITP. She was seen 03/27/2020 here in the emergency department and noted to have a platelet count of 7000. Because we do not have the ability to transfuse platelets she was transferred to [facility]. She did not receive a platelet transfusion at [place] but has instead received 4 days of dexamethasone. 40 mg each dose. When she left [facility] notes indicate that she left with a platelet count of 18,000. She did not receive a platelet infusion while at [facility]. She does have a pending referral to our oncologist Dr. Bower - Patient reports that since starting the dexamethasone she has not had any hematochezia or petechiae. However she has extreme stomach discomfort and is worried about taking further doses of dexamethasone. On review of her labs today it is unfortunate that her platelet count has again decreased to 7000. This is worrisome in the setting of 4 days of high intensity steroids. Patient will likely need to be transferred to an outlying hospital as she as we do not have the ability to transfuse platelets here at [facility]. I have spoken with the physician from [facility] who has accepted the patient in transfer. We are pending bed availability at [facility]. 1540: I have spoken with our oncologist Dr. Inman to consult for her care while she waits in the emergency department pending transfer to [facility]. At this time he would recommend a dose of intravenous gamma globulin. He recommends 1000 mg/kg once. He would also recommend re-dosing her dexamethasone 40 mg IV. 1630: We are unable to provide this patient with IVIG here in the emergency department. As a [facility] we do not have a supply necessary for use in the emergency department. I have spoken with our lead pharmacy technician re garding this. At this time we will proceed with the IV dexamethasone and pending a bed availability for the patient in [facility]. 1735: I have been notified by the transferring [place] physicians that unfortunately due to an error on there and they did not arrange for a hospitalist to receive the patient at [facility]. At this time they do recommend a direct ER to ER transfer. I have spoken with ER physician Dr. arizmendi who has agreed to accept the patient in transport to [facility] arrangements are being made. Departure - Departure Disposition: 02 Transfer Acute Care Hosp Clinical Impression: Idiopathic thrombocytopenic purpura (ITP)
[2020-03-31 13:02] LABS: BASOPHILS % (AUTO) 0.2 %; EOSINOPHILS # (AUTO) 0.1 10^3/uL (0.0-0.7); EOSINOPHILS % (AUTO) 0.9 %; HGB - HEMOGLOBIN 15.3 g/dL (12.0-16.0); LYMPHOCYTES # (AUTO) 2.8 10^3/uL (1.5-3.5); LYMPHOCYTES % (AUTO) 49.7 %; MEAN CORPUSCULAR HEMOGLOBIN 30.2 pg (27.0-31.0); MEAN CORPUSCULAR HGB CONC 32.8 g/dL (32.0-36.0); MEAN CORPUSCULAR VOLUME 92.1 fL (81.0-99.0); MONOCYTES # (AUTO) 0.3 10^3/uL (0.0-1.0); MONOCYTES % (AUTO) 5.9 %; NEUTROPHILS # (AUTO) 2.4 10^3/uL (1.5-6.6); NEUTROPHILS % (AUTO) 42.4 %; RED BLOOD COUNT 5.06 10^6/uL (4.20-5.40); RED CELL DISTRIBUTION WIDTH 12.6 % (12.0-15.0); WHITE BLOOD COUNT 5.6 x10^3/uL (4.8-10.8)
[2020-03-31 13:10] LABS: PLT - PLATELET COUNT 7 10^3/uL (130-450)
[2020-03-31 13:19] LABS: BILIRUBIN,URINE NEGATIVE (NEGATIVE); GLUCOSE, URINE (UA) NEGATIVE (NEGATIVE); KETONES,URINE (UA) NEGATIVE (NEGATIVE); LEUKOCYTE ESTERASE, URINE MODERATE (NEGATIVE); NITRITE,URINE NEGATIVE (NEGATIVE); OCCULT BLOOD,URINE NEGATIVE (NEGATIVE); PROTEIN,URINE TRACE mg/dL (NEGATIVE); UROBILINOGEN,URINE 0.2 (NORMAL) E.U./dL (NORMAL)
[2020-03-31 13:25] LABS: CLARITY,URINE HAZY (CLEAR)
[2020-03-31 13:28] LABS: PLATELET ESTIMATE, MANUAL DECREASED (<130,000) (NORMAL); PLATELET MORPHOLOGY NORMAL APPEARANCE (NORMAL)
[2020-03-31 13:29] LABS: ALBUMIN 4.6 g/dL (3.2-5.5); ALBUMIN/GLOBULIN RATIO 1.5 (1.0-2.2); BILIRUBIN,TOTAL 0.5 mg/dL (0.2-1.0); CALCIUM 9.1 mg/dL (8.5-10.3); CREATININE 0.8 mg/dL (0.4-1.0); TOTAL PROTEIN 7.6 g/dL (6.7-8.2)
[2020-03-31 13:41] LABS: BACTERIA,URINE Rare /HPF (None Seen); RBC,URINE None Seen /HPF (0-5); SQUAMOUS EPITHELIAL CELL,UR RARE Squamous (<= Few)
[2020-03-31] MEDS ORDERED: PANTOPRAZOLE 40 MG VIAL IVP STA (15:33)
[2020-03-31] MEDS ORDERED: DEXAMETHASONE 10 MG/ML VIAL IVP STA (15:34)
[2020-03-31 18:06] VITALS: BP 126/76
== END 2020-03-31 18:45 | disposition short-term general hospital (02) ==
LOC: ED 12:26
DX: D69.3 Immune thrombocytopenic purpura (principal); M32.9 Systemic lupus erythematosus, unspecified
CPT/HCPCS: 36415; 80053; 81001; 81003; 83690; 85025; 87086; 96374; 96375; 99283

== ENCOUNTER 2020-03-31 18:47 | Outpatient (CLI) | payer OTHER | END 2020-03-31 18:48 | disposition short-term general hospital (02) | LOC: EMS 18:47 | PROVIDERS: ATTEND Surgery | DX: D69.3 Immune thrombocytopenic purpura (principal); R10.9 Unspecified abdominal pain | CPT/HCPCS: A0425; A0428 ==

== ENCOUNTER 2020-04-19 11:57 | Observation (INO) | payer OTHER ==
[2020-04-19] MEDS ORDERED: SODIUM CHLORIDE 0.9% 1,000 ML IV STA (12:05)
--- NOTE | 2020-04-19 12:47 | ED Physician Documentation ---
PD HPI SYNCOPE - Stated complaint Stated Complaint: SYNCOPE - Chief complaint Chief Complaint: Neuro - History obtained from History obtained from: Patient - Additional information Additional information: 59-year-old woman with history of ITP undergoing treatment with IVIG. Starting early yesterday morning she started having large nosebleeds. Subsequent to that she did have some dark stools. But the nosebleeds were large in volume causing clots. She was seen today at hematology clinic and noted to have platelet count of 2, and her hemoglobin has dropped in the last 4 days from 13.9-9.7. Her BUN has gone up as well. She has been dizzy and weak since yesterday with presyncope. Review of Systems Ten Systems: 10 systems reviewed and negative Constitutional: reports: Fatigue. denies: Fever, Chills Nose: reports: Epistaxis Cardiac: denies: Chest pain / pressure, Palpitations Respiratory: denies: Dyspnea, Cough GI: reports: Bloody / black stool. 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, Other - Present Medications Home Medications: Ambulatory Orders Medication Instructions Recorded Confirmed Atomoxetine HCl [Strattera] 25 mg PO DAILY 03/31/13 04/13/20 QUEtiapine [SEROquel] 25 mg PO HS 03/31/13 04/13/20 lamoTRIgine [LaMICtal] 200 mg PO DAILY 03/31/13 04/13/20 Hydroxychloroquine [Plaquenil] 200 mg PO BID 05/27/13 04/13/20 amLODIPine [Norvasc] 5 mg PO DAILY 09/02/13 04/13/20 Sertraline HCl [Zoloft] 50 mg PO DAILY 12/02/13 04/13/20 Pilocarpine HCl 5 mg PO TID 06/02/14 04/13/20 Cholecalciferol (Vitamin D3) 5,000 units PO DAILY 10/19/15 04/13/20 [Vitamin D3] Dexamethasone Sodium Phosp/Pf 10 mg IM 04/06/20 [Dexamethasone 10 mg/ml Syring] Omeprazole 40 mg PO DAILY 04/06/20 04/13/20 QUEtiapine [SEROquel] 25 mg PO DAILY PM 04/06/20 04/13/20 - Allergies Allergies/Adverse Reactions: Allergies Allergy/AdvReac Type Severity Reaction Status Date / Time Sulfa (Sulfonamide Allergy Intermediate Hives Verified 04/13/20 09:59 Antibiotics) amoxicillin Allergy Nausea Verified 04/13/20 09:59 - Social History Does the pt smoke?: No Smoking Status: Never smoker Does the pt drink ETOH?: No Does the pt have substance abuse?: No - Family History Family history: reports: Non contributory - Immunizations Immunizations are current?: Yes Immunizations: TDAP current <10years (Last tetanus booster about 8 years ago.) - POLST Patient has POLST: No POLST Status: Full Code PD ED PE NORMAL - Vitals Vital signs reviewed: Yes - General General: Alert and oriented X 3, No acute distress - HEENT HEENT: Other (No active bleeding of the nares but she does have some dried blood; Also palatal petechia) - Neck Neck: Supple, no meningeal sign, No bony TTP - Cardiac Cardiac: RRR, No murmur - Respiratory Respiratory: No respiratory distress, Clear bilaterally - Abdomen Abdomen: Normal bowel sounds, Soft, Non tender - Back Back: No CVA TTP, No spinal TTP - Derm Derm: Normal color, Warm and dry - Extremities Extremities: No edema, No calf tenderness / cord - Neuro Neuro: Alert and oriented X 3, Normal speech Results - Vitals Vitals: Vital Signs - 24 hr 04/19/20 04/19/20 04/19/20 11:59 12:02 12:05 Temperature 37.0 C 37.0 C Heart Rate 90 95 Heart Rate [ 111 H Sitting] Heart Rate [ 104 H Supine] Respiratory 16 16 Rate Blood Pressure 118/63 118/63 Blood Pressure 116/74 [Sitting] Blood Pressure 102/56 L [Supine] O2 Saturation 99 100 04/19/20 04/19/20 12:32 12:58 Temperature Heart Rate 95 94 Heart Rate [ Sitting] Heart Rate [ Supine] Respiratory 16 16 Rate Blood Pressure 120/53 L 121/53 L Blood Pressure [Sitting] Blood Pressure [Supine] O2 Saturation 99 100 Oxygen O2 Source Room air - EKG (time done) 1200 Rate: Rate (enter#) (94) Rhythm: NSR Castell: Normal Intervals: Normal [place] QRS: Normal Ischemia: Normal ST segments Computer interpretation: Agree with computer - Labs Labs: Laboratory Tests 04/19/20 11:00 Blood Type A POSITIVE Antibody Screen NEGATIVE PD MEDICAL DECISION MAKING - ED course ED course: 59-year-old woman with active ITP and a platelet count of 2 presents with presyncope and about a 3 to 4 unit blood loss over the last few days that by history is due to large nosebleeds. There is no active bleeding. She was sent from the clinic and her oncologist recommends 80 g x 2 of IVIG as well as a platelet transfusion. I ordered the platelets, there was a delay in ordering the IVIG since there is no order built into [employer] I will have to discuss with pharmacy. Sequently the pharmacist order the IVIG and Dr. Posada will observe for serial H&H's. Departure - Departure Disposition: ED Place in Observation Clinical Impression: Idiopathic thrombocytopenic purpura (ITP), Nosebleed, Acute blood loss anemia, Pre-syncope Condition: Serious Discharge Date/Time: 04/19/20 13:45
[2020-04-19] MEDS ORDERED: ONDANSETRON 4 MG/2 ML VIAL IVP PRN (13:12)
[2020-04-19] MEDS ORDERED: ONDANSETRON ODT 4 MG TABLET TL PRN (13:12)
[2020-04-19] MEDS ORDERED: SODIUM CHLORIDE FLUSH 0.9% 10 ML SYRINGE IVP PRN (13:12)
[2020-04-19] MEDS ORDERED: oxyCODONE 5 MG TABLET PO PRN (13:12)
--- NOTE | 2020-04-19 14:24 | HISTORY & PHYSICAL EXAMINATION ---
Chief Complaint - Chief Complaint Chief Complaint: low platelets and nose bleed History of Present Illness - Admitted From Admitted From:: Home/MAC/ER - History Obtained From Records Reviewed: [facility] History obtained from: patient and Dr. Yu Exam Limitations: none - History of Present Illness HPI Comment/Other: History is obtained from Dr. Yu. This unfortunate female has ITP. ITP associated with lupus. Off steroids since April 2013. In remission until 03/2020. She noticed large unprovoked bruises on her arms and legs. Platelets were rechecked and were 7000. Transferred to [place] and received IV steroids then oral dexamethasone to complete a 4-day course March 30, 2020. She developed significant abdominal pain with the dexamethasone. Repeat blood work showed platelet count of again of 7000 and she was again transferred to [place] and received more platelet transfusions. Platelet count on April 02 was 92,000. Treat with platelets x 2, dexmethasone 4 days of 14 x 4. Platelets have rebounded to 80,000. However, starting yesterday morning, she began having nosebleeds. It was brisk enough that it dripped on the back of her throat, caused her to cough and gag and she have to cough up blood. She denies vomiting blood. Stool did get dark. She was seen by oncology today at her clinic and she was noted to have a platelet count of 2000. Hemoglobin has dropped. 4 days ago she was 13.9 and today she is 9.7. She is lightheaded, dizzy every time she gets up. The emergency room physician has seen the patient and she was afebrile. Normotensive. Not tachycardic. Oxygenating well on room air. Labs from the oncology clinic were reviewed. They were not redone in the emergency room. BUN is 42, creatinine 0.7. Glucose is normal at 113. Calcium is low at 8. White cell count is 2.9. Earlier this month, she started at 6.3 and is been steadily dropping. Hemoglobin on April 06 was 14.5. She is 9.7. Platelets are 81,000 and have been 0 on April 13 and April 15. She is now 2. She is an alert oriented female who has palatal petechiae but nothing else on physical examination. Her oncologist called the emergency room and asked her to please be transfused platelets, and to receive 280 mg doses of IVIG. Patient is now Placed in observation. History - Past Medical History Cardiovascular: reports: Other Respiratory: reports: None Neuro: reports: Head injury (Traumatic brain injury) Endocrine/Autoimmune: reports: Systemic lupus erythematosus (with Raynauds) GI: reports: None CHEMIST INSTRUMENTATION: reports: Other ( w partial hyster) : reports: Other HEENT: reports: Chronic vision loss Psych: reports: Depression, Anxiety Musculoskeletal: reports: Osteoarthritis Derm: reports: Other MRSA Hx?: No - Past Surgical History Ortho: reports: Knee replacement /CHEMIST INSTRUMENTATION: reports: Hysterectomy, Other - Family & Social History Family History Comment/Other: Father alive with hypertension and kidney stones. Mother alive with hypertension, partial thyroid removal, osteoarthritis. 2 sisters and 1 brother and 2 have had thyroid removal. 2 sons are healthy Living arrangement: At home Living Situation: With spouse/s.o. 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 She was working full-time until summer. She is due to go back next but she does know she is can have the energy to be able to. Non-smoker. Did smoke for 9 years, and smoked 1-1/2 packs/day and quit in 1989. Rare alcohol drinker. No history of recreational substance abuse. - Substance History Use: Uses substance without health or social issues: NONE Abuse: Recurrent use of substance despite neg consequences: NONE Dependence: Experiences withdrawal or developed tolerances: NONE - POLST Patient has POLST: No POLST Status: Full Code Meds/Allgy - Home Medications Home Medications: Ambulatory Orders Medication Instructions Recorded Confirmed Atomoxetine HCl [Strattera] 25 mg PO DAILY 03/31/13 04/13/20 QUEtiapine [SEROquel] 25 mg PO HS 03/31/13 04/13/20 lamoTRIgine [LaMICtal] 200 mg PO DAILY 03/31/13 04/13/20 Hydroxychloroquine [Plaquenil] 200 mg PO BID 05/27/13 04/13/20 amLODIPine [Norvasc] 5 mg PO DAILY 09/02/13 04/13/20 Sertraline HCl [Zoloft] 50 mg PO DAILY 12/02/13 04/13/20 Pilocarpine HCl 5 mg PO TID 06/02/14 04/13/20 Cholecalciferol (Vitamin D3) 5,000 units PO DAILY 10/19/15 04/13/20 [Vitamin D3] Dexamethasone Sodium Phosp/Pf 10 mg IM 04/06/20 [Dexamethasone 10 mg/ml Syring] Omeprazole 40 mg PO DAILY 04/06/20 04/13/20 QUEtiapine [SEROquel] 25 mg PO DAILY PM 04/06/20 04/13/20 - Allergies Allergies/Adverse Reactions: Allergies Allergy/AdvReac Type Severity Reaction Status Date / Time Sulfa (Sulfonamide Allergy Intermediate Hives Verified 04/13/20 09:59 Antibiotics) amoxicillin Allergy Nausea Verified 04/13/20 09:59 Review of Systems - Constitutional Constitutional: reports: Fatigue, Poor appetite. denies: Fever, Chills, Malaise, Weakness, Diaphoresis, Night sweats - Eyes Eyes: denies: Pain, Irritation, Spots in vision, Field loss - Ears, Nose & Throat Ears, Nose & Throat: reports: Nosebleeds. denies: Ear pain, Hearing loss, Hearing aids, Tinnitus, Vertigo, Dentures - Cardiovascular Cariovascular: reports: Lightheadedness, Exertional dyspnea, Decr. exercise tolerance. denies: Irregular heart rate, Palpitations, Chest pain, Syncope - Respiratory Respiratory: denies: Cough, Sputum production, Wheezing, Hemoptysis, Orthopnea, SOB at rest - Gastrointestinal Gastrointestinal: reports: Black stools, Nausea. denies: Abdominal pain, Abdominal distention, Constipation, Diarrhea, Bloody stools, Vomiting, Bile emesis - Genitourinary Genitourinary: denies: Dysuria, Frequency, Urgency, Hematuria - Musculoskeletal Musculoskeletal: reports: Muscle pain, Muscle aches, Stiffness, Joint pain. denies: Back pain - Integumentary Integumentary: denies: Rash, Pruritis, Lesions - Neurological Neurological: reports: General weakness, Dizziness. denies: Focal weakness, Headache - Psychiatric Psychiatric: reports: Depression, Anxiety. denies: Suicidal, Delusions, Hallucinations, Homicidal - Endocrine Endocrine: reports: Intolerance to cold. denies: Polyuria, Polydypsia, P olyphagia - Hematologic/Lymphatic Hematologic/Lymphatic: reports: Anemia, Bruising Prior Level of Functionality: She was doing well until March of this year. The bruising is associated with fatigue, lack of energy. Still able to dress herself, feed herself, drive. More and and kids to do other things. No durable medical equipment needed. Exam - Vital Signs Reviewed Vital Signs: Yes Vital Signs: Vital Signs x48h Temp Pulse Pulse Pulse Pulse Resp BP 04/19/20 14:07 37.1 C 94 16 04/19/20 13:41 95 16 123/77 04/19/20 13:15 90 16 102/67 04/19/20 12:58 94 16 121/53 L 04/19/20 12:32 95 16 120/53 L 04/19/20 12:05 111 H 104 H 04/19/20 12:02 37.0 C 95 16 118/63 04/19/20 11:59 37.0 C 90 16 118/63 BP BP BP Pulse Ox 04/19/20 14:07 150/65 H 100 04/19/20 13:41 100 04/19/20 13:15 100 04/19/20 12:58 100 04/19/20 12:32 99 04/19/20 12:05 116/74 102/56 L 04/19/20 12:02 100 04/19/20 11:59 99 - Physical Exam General Appearance: positive: No acute distress, Alert, Other (Fatigued appearing almost beltran cast to skin, white female who looks older than stated age, son is at the bedside) Eyes Bilateral: positive: PERRL, EOMI ENT: positive: No signs of dehydration Neck: positive: No JVD. negative: Stiff neck, Carotid bruit Respiratory: positive: Chest non-tender. negative: Wheezes, Rales, Rhonchi Cardiovascular: positive: Regular rate & rhythm, Systolic murmur. negative: Gallop/S4, Friction rub Peripheral Pulses: positive: 1+ Abdomen: positive: Non-tender, No organomegaly, Nml bowel sounds, No distention Skin: positive: No rash, Dry, Pallor Extremities: positive: Non-tender, Full ROM, No pedal edema Neurologic/Psychiatric: positive: Oriented x3, CN's nml (2-12), Motor nml, Sensation nml Conclusion/Plan - Problem List (1) Acute blood loss anemia Conclusion/Plan: due to severe nosebleed that was in turn due to thrombocytopenia. Plan: Obsrvation stay Follow Dr. Bower's request for platelet transfusion and IV IgG (2) Idiopathic thrombocytopenic purpura (ITP) Conclusion/Plan: Will follow through with visits to [facility]. (3) Raynaud disease Conclusion/Plan: resume norvasc in the am. Qualifiers: Raynaud?s-associated gangrene presence: without gangrene Qualified Code(s): I73.00 - Raynaud's syndrome without gangrene (4) Depression Conclusion/Plan: due to her illnesses. resume her meds once reconciled. Qualifiers: Depression Type: other depression Qualified Code(s): F32.89 - Other specified depressive episodes - Lab Results Lab results reviewed: Yes Core Measures - Anticipated LOS I expect patient to be DC'd or transferred within 96 hours.: Yes - DVT/VTE - Prophylaxis VTE/DVT Device ordered at admit?: Yes
[2020-04-19] MEDS ORDERED: IMMUNE GLOBULIN 20 GM/200 ML VIAL IV ONE ×4 (16:00)
[2020-04-19] MEDS: ACETAMINOPHEN 325 MG TABLET PO PRN (19:29)
[2020-04-19] MEDS: SODIUM CHLORIDE FLUSH 0.9% 10 ML SYRINGE IVP SCH (20:43)
[2020-04-19 22:05] LABS: HGB - HEMOGLOBIN 7.4 g/dL (12.0-16.0)
[2020-04-20] MEDS ORDERED: SODIUM CHLORIDE 0.9% 500 ML IV ONE (02:03)
[2020-04-20] MEDS: SODIUM CHLORIDE FLUSH 0.9% 10 ML SYRINGE IVP SCH ×3 (02:03→17:14)
[2020-04-20 07:31] LABS: CALCIUM 7.7 mg/dL (8.5-10.3); CREATININE 0.6 mg/dL (0.4-1.0); MAGNESIUM 1.9 mg/dL (1.7-2.8); PHOSPHORUS 2.6 mg/dL (2.5-4.6)
[2020-04-20 07:36] LABS: BASOPHILS % (AUTO) 0.5 %; HGB - HEMOGLOBIN 8.2 g/dL (12.0-16.0); LYMPHOCYTES % (AUTO) 32.4 %; MEAN CORPUSCULAR HEMOGLOBIN 30.9 pg (27.0-31.0); MEAN CORPUSCULAR HGB CONC 33.6 g/dL (32.0-36.0); MEAN CORPUSCULAR VOLUME 92.1 fL (81.0-99.0); MONOCYTES % (AUTO) 10.7 %; NEUTROPHILS % (AUTO) 47.5 %; RED BLOOD COUNT 2.65 10^6/uL (4.20-5.40); RED CELL DISTRIBUTION WIDTH 13.4 % (12.0-15.0); WHITE BLOOD COUNT 4.4 x10^3/uL (4.8-10.8)
[2020-04-20 07:41] LABS: PLT - PLATELET COUNT 2 10^3/uL (130-450)
[2020-04-20 07:43] LABS: ABNORMAL LYMPHS % (MANUAL) 0 %
[2020-04-20] MEDS: ACETAMINOPHEN 325 MG TABLET PO PRN ×2 (08:47→12:56)
[2020-04-20] MEDS: POTASSIUM CHLORIDE 20 MEQ TABLET PO ONE ×2 (08:48→12:56)
[2020-04-20 08:52] LABS: BAND NEUTROPHILS % (MANUAL) 4 %; EOSINOPHILS # (MANUAL) 0.3 10^3/uL (0-0.7); LYMPHOCYTES # (MANUAL) 1.8 10^3/uL (1.5-3.5); LYMPHOCYTES % (MANUAL) 42 %; METAMYELOCYTES % (MANUAL) 1 %; MONOCYTES # (MANUAL) 0.3 10^3/uL (0.0-1.0); MYELOCYTES % (MANUAL) 1 %; PLATELET ESTIMATE, MANUAL DECREASED (<130,000) (NORMAL); PLATELET MORPHOLOGY NORMAL APPEARANCE (NORMAL); RBC MORPHOLOGY (MULTIPLE) NORMAL APPEARANCE (NORMAL)
[2020-04-20 08:53] LABS: DIFFERENTIAL COMMENT MANUAL DIFFERENTIAL
[2020-04-20] MEDS ORDERED: predniSONE 20 MG TABLET PO SCH ×2 (12:00)
--- NOTE | 2020-04-20 13:03 | Discharge Plan ---
Discharge Plan Problem Reviewed?: Yes Disposition: 02 Transfer Acute Care Hosp Condition: Serious No Smoking: If you smoke, Please STOP! Call for help.
--- NOTE | 2020-04-20 13:04 | DISCHARGE SUMMARY ---
"Discharge Summary Admit Date: 04/19/20 Discharge Date: 04/20/20 Discharging Provider: Salma Posada MD Primary Care Provider: Cee Wiggins MD (Oncology [facility]) Code Status: Attempt Resuscitation Condition at Discharge: Serious Discharge Disposition: 02 Transfer Acute Care Hosp Discharge Facility Name: [facility] - DIAGNOSES Discharge Diagnoses with Status of Each Condition: 1. Acute blood loss anemia 2. Severe epistaxis 3. ITP 4. Systemic lupus erythematosus with Raynaud's - HPI History of Present Illness: This unfortunate female has ITP. ITP associated with lupus. Off steroids since April 2013. In remission until 03/2020. She noticed large unprovoked b ruises on her arms and legs. Platelets were rechecked and were 7000. Transferred to [facility] and received IV steroids then oral dexamethasone to complete a 4-day course March 30, 2020. She developed significant abdominal pain with the dexamethasone. Repeat blood work showed platelet count of again of 7000 and she was again transferred to [facility] and received more platelet transfusions. Platelet count on April 02 was 92,000. Treat with platelets x 2, dexmethasone 4 days of 14 x 4. Platelets have rebounded to 80,000. However, starting yesterday morning, she began having nosebleeds. It was brisk enough that it dripped on the back of her throat, caused her to cough and gag and she have to cough up blood. She denies vomiting blood. Stool did get dark. She was seen by oncology today at her clinic and she was noted to have a platelet count of 2000. Hemoglobin has dropped. 4 days ago she was 13.9 and today she is 9.7. She is lightheaded, dizzy every time she gets up. The emergency room physician has seen the patient and she was afebrile. Normotensive. Not tachycardic. Oxygenating well on room air. Labs from the oncology clinic were reviewed. They were not redone in the emergency room. BUN is 42, creatinine 0.7. Glucose is normal at 113. Calcium is low at 8. White cell count is 2.9. Earlier this month, she started at 6.3 and is been steadily dropping. Hemoglobin on April 06 was 14.5. She is 9.7. Platelets are 81,000 and have been 0 on April 13 and April 15. She is now 2. She is an alert oriented female who has palatal petechiae but nothing else on physical examination. Her oncologist called the emergency room and asked her to please be transfused platelets, and to receive 280 mg doses of IVIG. Patient is now Placed in observation. - Past Medical History Cardiovascular: reports: Other Respiratory: reports: None Neuro: reports: Head injury (Traumatic brain injury) Endocrine/Autoimmune: reports: Systemic lupus erythematosus (with Raynauds) GI: reports: None [employer] SECURITY: reports: Other ( w partial hyster) : reports: Other HEENT: reports: Chronic vision loss Psych: reports: Depression, Anxiety Musculoskeletal: reports: Osteoarthritis Derm: reports: Other MRSA Hx?: No - Past Surgical History Ortho: reports: Knee replacement /[employer] SECURITY: reports: Hysterectomy, Other - CONSULTS | PROCEDURES Procedures: 1. Transfusion of 1 unit of packed cells, red 2. Transfusion of 2 packs of platelets 3. Intravenous gammaglobulin 80 mg - HOSPITAL COURSE Hospital Course: We were in direct conversation with her oncologist, Dr. Cee Bower. We were instructed to give her 80 mg of gammaglobulin IV for 2 doses. Unfortunately the hospital only has 80 mg of 1 dose. She received 1 of the 40 mg before being transferred to [facility]. Even after the IVIG, and transfusion of 1 platelet pot, platelets were still 2 and she was still briskly bleeding from her nose. She began the month of August with a hemoglobin of 14. She dropped down to 7.4 on the day of admission. She was transfused 1 unit and hemoglobin is 8.2 at discharge. Unfortunately platelets started at 2000 and continued at 2000 even after treatment. Considering she was still briskly bleeding, at times choking from the blood going down the back of her throat, we felt it prudent to transfer her to a [facility] level of care for ENT consultation, continue treatment of her ITP with bleeding. I spoke to her oncologist who asked that we start her on p.o. prednisone. Unfortunately the patient refused to take it.Since she was hospitalized at [facility] for the last 2 admissions in March, we requested a bed there. She has been accepted by Dr. Flood who is emergency medical services coordinator for [place]. She is discharged in guarded condition. Currently hemodynamically stable with a temperature of 37.3, pulse 106, blood pressure 134/70. Respirations 20 and 100% on room air. She is a 5 feet 5 inches 82 kg female. Pale, circles under her eyes, frightened. Speaking with a nasal tone of voice because of severe clots in her nose. Lungs are clear no increased respiratory effort. She has a regular rate and rhythm. The abdomen is soft, nontender, mild splenomegaly. Hands and feet are slightly cold. Not yet blue from ray nods. She is asked to follow-up with whatever recommendations her oncologist makes. See her primary care provider in the next 2 weeks. - ALLERGIES Allergies/Adverse Reactions: Allergies Allergy/AdvReac Type Severity Reaction Status Date / Time Sulfa (Sulfonamide Allergy Intermediate Hives Verified 04/13/20 09:59 Antibiotics) amoxicillin Allergy Nausea Verified 04/13/20 09:59 - MEDICATIONS Home Medications: Ambulatory Orders Medication Instructions Recorded Confirmed Atomoxetine HCl [Strattera] 25 mg PO DAILY 03/31/13 04/13/20 QUEtiapine [SEROquel] 25 mg PO HS 03/31/13 04/13/20 lamoTRIgine [LaMICtal] 200 mg PO DAILY 03/31/13 04/13/20 Hydroxychloroquine [Plaquenil] 200 mg PO BID 05/27/13 04/13/20 amLODIPine [Norvasc] 5 mg PO DAILY 09/02/13 04/13/20 Sertraline HCl [Zoloft] 50 mg PO DAILY 12/02/13 04/13/20 Pilocarpine HCl 5 mg PO TID 06/02/14 04/13/20 Cholecalciferol (Vitamin D3) 5,000 units PO DAILY 10/19/15 04/13/20 [Vitamin D3] Dexamethasone Sodium Phosp/Pf 10 mg IM 04/06/20 [Dexamethasone 10 mg/ml [place]] Omeprazole 40 mg PO DAILY 04/06/20 04/13/20 QUEtiapine [SEROquel] 25 mg PO DAILY PM 04/06/20 04/13/20 - LABS Result Diagrams: 04/20/20 07:10 04/20/20 07:10"
--- NOTE | 2020-04-20 15:03 | ED Physician Documentation ---
PD HPI HEENT - Stated complaint Stated Complaint: SYNCOPE - Chief complaint Chief Complaint: Neuro - History obtained from History obtained from: Patient, Family - History of Present Illness Timing - onset: Yesterday Timing - duration: Days (2) Timing - details: Gradual onset, Still present Location: Nose Improves: Nothing Similar symptoms before: Diagnosis (nose bleed) Recently seen: Emergency Dept, Admitted - Additional information Additional information: 59-year-old female is being treated for ITP with IV IG and she has developed nosebleed. When she was admitted yesterday her nosebleed had stopped she is actively bleeding now and I was asked by the hospitalist to come to the bedside to place a Rhino Rocket. 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: Other ( w partial hyster) : Other HEENT: Chronic vision loss Psych: Depression, Anxiety Musculoskeletal: Osteoarthritis Derm: Other Other Past Medical History: 2000 head injury - Past Surgical History Past Surgical History: Yes Ortho: Knee replacement /BUSINESS PROCESS CONSULTANT: Hysterectomy, Other - Present Medications Home Medications: Ambulatory Orders Medication Instructions Recorded Confirmed lamoTRIgine [LaMICtal] 200 mg PO QPM 03/31/13 04/20/20 Hydroxychloroquine [Plaquenil] 200 mg PO DAILY 05/27/13 04/20/20 amLODIPine [Norvasc] 5 mg PO DAILY 09/02/13 04/20/20 Pilocarpine HCl 5 mg PO BID 06/02/14 04/20/20 Atomoxetine HCl [Strattera] 25 mg PO DAILY 04/20/20 04/20/20 QUEtiapine [SEROquel] 25 mg PO QPM 04/20/20 04/20/20 Sertraline [Zoloft] 50 mg PO DAILY 04/20/20 04/20/20 - Allergies Allergies/Adverse Reactions: Allergies Allergy/AdvReac Type Severity Reaction Status Date / Time Sulfa (Sulfonamide Allergy Intermediate Hives Verified 04/13/20 09:59 Antibiotics) amoxicillin Allergy Nausea Verified 04/13/20 09:59 - Social History Does the pt smoke?: No Smoking Status: Former smoker Does the pt drink ETOH?: No Does the pt have substance abuse?: No - Immunizations Immunizations are current?: Yes Immunizations: TDAP current <10years (Last tetanus booster about 8 years ago.) - POLST Patient has POLST: No POLST Status: Full Code Results - Vitals Vitals: Oxygen O2 Source Room air - Labs Labs: Laboratory Tests 04/19/20 04/19/20 11:00 11:00 Blood Type A POSITIVE A POSITIVE Antibody Screen NEGATIVE Crossmatch IS Only See Detail Procedures - Epistaxis Site: Left, Anterior Preparation: Clots removed Treatment: Anterior rhinorocket Other: Observed - no bleeding, Pt tolerated well, O2 sat WNL, Other (Transfer to acute care) PD MEDICAL DECISION MAKING - ED course ED course: 59-year-old female with a nosebleed with ITP is in the hospital and a Rhino Rocket 4.5 cm anterior is placed and the patient tolerates this well.The Rhino Rocket extrudes itself and the second Rhino Rocket is required and this time a 5.5 cm anterior Rhino Rocket is placed. Departure - Departure Disposition: ED Place in Observation Clinical Impression: Idiopathic thrombocytopenic purpura (ITP), Nosebleed, Acute blood loss anemia, Pre-syncope Condition: Serious Discharge Date/Time: 04/19/20 13:45
--- NOTE | 2020-04-20 17:14 | PHARMACY PROGRESS NOTE ---
- Best Possible Medication History Admit Date and Time: 04/19/20 1312 Processed by: Pharmacy Medication History completed: Yes Patient Interview: Completed Secondary Source(s): Insurance records As the person ultimately responsible for medication therapy, providers are able to order a medication from an existing home medication list in [facility] via the "Reconcile Routine" prior to Confirmation of that medication by media production support manager. Such practice is discouraged except when the physician, in their clinical judgment, deems that a medical need exists for a medication without regard to previous use.
[2020-04-20 17:18] VITALS: BP 114/84
== END 2020-04-20 19:00 | disposition short-term general hospital (02) ==
LOC: ED 11:57 → MS3 13:12
PROVIDERS: ADMIT Specialist; ATTEND Specialist
DX: D62 Acute posthemorrhagic anemia (principal); M32.19 Other organ or system involvement in systemic lupus erythematosus; D69.3 Immune thrombocytopenic purpura; I73.00 Raynaud's syndrome without gangrene; H54.7 Unspecified visual loss; F32.89 Other specified depressive episodes; F41.9 Anxiety disorder, unspecified; Z79.52 Long term (current) use of systemic steroids; Z79.899 Other long term (current) drug therapy; Z96.659 Presence of unspecified artificial knee joint; Z87.891 Personal history of nicotine dependence; Z87.820 Personal history of traumatic brain injury
CPT/HCPCS: 36415; 80048; 83735; 84100; 85014; 85018; 85025; 86850; 86900; 86901; 86920; 93005

== ENCOUNTER 2020-04-27 14:22 | Observation (INO) | payer OTHER ==
[2020-04-27] MEDS ORDERED: ACETAMINOPHEN 325 MG TABLET PO PRN (15:34)
[2020-04-27] MEDS ORDERED: SODIUM CHLORIDE FLUSH 0.9% 10 ML SYRINGE IVP PRN (15:34)
[2020-04-27] MEDS ORDERED: ONDANSETRON 4 MG/2 ML VIAL IVP PRN (15:34)
[2020-04-27] MEDS ORDERED: ZOLPIDEM 5 MG TABLET PO PRN (15:34)
[2020-04-27] MEDS ORDERED: D5.45NS W/20 MEQ KCL 1,000 ML IV SCH (16:00)
[2020-04-27] MEDS: predniSONE 20 MG TABLET PO SCH (16:32)
[2020-04-27] MEDS ORDERED: IMMUNE GLOBULIN 20 GM/200 ML VIAL IV ONE ×4 (17:00→21:30)
[2020-04-27] MEDS: SODIUM CHLORIDE FLUSH 0.9% 10 ML SYRINGE IVP SCH (17:41)
--- NOTE | 2020-04-27 19:01 | HISTORY & PHYSICAL EXAMINATION ---
DATE OF SERVICE: 04/27/2020 Physician: Dariana Alvarenga MD PRIMARY CARE PHYSICIAN: Dr Darwin Pompa HISTORY OF PRESENT ILLNESS: This is a 59-year-old white female with a remote history of traumatic brain injury, and history of systemic lupus with Raynaud's phenomenon, history of anxiety/depression, osteoarthritis, and chronic vision loss. She has a history of ITP and since August of this year has had problems with thrombocytopenia, which has been severe. She has required admissions to [facility] and management with her oncologist here at the [facility], Dr. Cee Bower. Patient developed epistaxis and was found to have severe thrombocytopenia with a platelet count of 2, one week ago. She was admitted here and got treated with platelet infusion, IVIG (gammaglobulin). She was also supposed to also get Prednisone, but refused to take this. She continued to have brisk bleeding from the nose and was choking and blood going down her throat and she was transferred by air-ambulance to [facility]. She was hospitalized there for 2 days and received platelets, as well as packed red blood cell transfusions. She has been home for about 2 days. Today, the [facility] clinic RN called me directly, on behalf of Dr Bower, since the patient had presented there for her followup and had labs done showing a platelet count of 1. She also had a recent slight nosebleed of the other nostril, which has now stopped. The [facility] clinic requested direct admission for management of thrombocytopenia again and plan for using IVIG again and also Prednisone, which patient now agreed to take. PAST MEDICAL HISTORY 1. TBI. 2. SLE with Raynaud's. 3. Depression and anxiety. 4. ITP. 5. Thrombocytopenia. 6. Recent severe epistaxis leading to blood loss anemia. ALLERGIES 1. SULFA. 2. AMOXICILLIN. MEDICATIONS 1. Strattera 25 mg daily. 2. Seroquel 25 mg every night. 3. Lamictal 200 mg daily. 4. Plaquenil 200 mg b.i.d. 5. Amlodipine 5 mg daily. 6. Zoloft 50 mg daily. 7. Pilocarpine 5 mg t.i.d. 8. Vitamin D3 5000 units daily. 9. Omeprazole 40 mg daily. 10. Seroquel 25 mg every night. FAMILY HISTORY: No inherited diseases. SOCIAL HISTORY: Patient is a nonsmoker, drinks no alcohol. 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 There is no history of substance abuse. PHYSICAL EXAMINATION GENERAL: Middle-aged white female. She appears to be in no distress. VITAL SIGNS: Blood pressure 114/84, heart rate 100 in sinus rhythm, afebrile, room air saturation 99%. HEENT: Shows one area of petechiae of the soft palate just above the uvula. Otherwise normal with moist mucosa. NECK: Without JVD or carotid bruits. CHEST: Clear. HEART: Normal heart sounds. No murmur. ABDOMEN: Soft, nontender. EXTREMITIES: No clubbing, cyanosis or edema. Skin is pale. NEUROLOGIC: Grossly intact. LABORATORY/DATA: Sodium 134, potassium 4.4, BUN 28, creatinine 0.7, normal liver tests. LDH 388. Albumin 2.8. White blood count 7.5, hemoglobin 9.7, platelet count 1. No INR was done. No imaging was done. No EKG was done. IMPRESSION/DIAGNOSES 1. Thrombocytopenia. 2. Idiopathic thrombocytopenic purpura. 3. Prerenal azotemia. 4. Anemia. 5. Systemic lupus erythematosus 6. Raynaud's phenomenon. 6. Hx of recent epistaxis. 7. Depression and anxiety. PLAN: Place patient in Observation status. Begin treatment as recommended by her Oncologist: IVIG at 1 gram/kg, which would equal 80 gram, to be dosed x1 IV. Begin prednisone 80 mg p.o. daily starting today. Patient has refused this in the past, but she will consent to it now. Resume all her home medications. Watch for any recurrence of nasal bleeding. If she has no significant nasal bleeding and her morning CBC is stable (for her), she could potentially be discharged tomorrow. DEEP VENOUS THROMBOSIS PROPHYLAXIS: None because of coagulation disorder. CODE STATUS: FULL CODE. ATTESTATION: Patient is expected to be discharged or transferred to another facility within 96 hours: Yes. TD: 04/27/2020 17:59 MATT
[2020-04-27] MEDS ORDERED: QUEtiapine 25 MG TABLET PO SCH (21:00)
[2020-04-27] MEDS ORDERED: lamoTRIgine 100 MG TABLET PO SCH (21:00)
[2020-04-27] MEDS: PILOCARPINE HCL 5 MG PO SCH (21:20)
[2020-04-28 05:33] LABS: HGB - HEMOGLOBIN 7.8 g/dL (12.0-16.0); LYMPHOCYTES # (AUTO) 0.7 10^3/uL (1.5-3.5); LYMPHOCYTES % (AUTO) 10.4 %; MEAN CORPUSCULAR HEMOGLOBIN 33.9 pg (27.0-31.0); MEAN CORPUSCULAR HGB CONC 33.5 g/dL (32.0-36.0); MEAN CORPUSCULAR VOLUME 101.3 fL (81.0-99.0); MONOCYTES # (AUTO) 0.3 10^3/uL (0.0-1.0); MONOCYTES % (AUTO) 4.5 %; NEUTROPHILS # (AUTO) 5.3 10^3/uL (1.5-6.6); NEUTROPHILS % (AUTO) 84.1 %; RED CELL DISTRIBUTION WIDTH 21.5 % (12.0-15.0); WHITE BLOOD COUNT 6.3 x10^3/uL (4.8-10.8)
[2020-04-28 05:39] LABS: PLT - PLATELET COUNT 2 10^3/uL (130-450)
[2020-04-28 05:40] LABS: CALCIUM 8.2 mg/dL (8.5-10.3); CREATININE 0.6 mg/dL (0.4-1.0); MAGNESIUM 2.2 mg/dL (1.7-2.8)
[2020-04-28] MEDS: SODIUM CHLORIDE FLUSH 0.9% 10 ML SYRINGE IVP SCH ×2 (05:48→08:01)
[2020-04-28 06:03] LABS: PLATELET ESTIMATE, MANUAL DECREASED (<130,000) (NORMAL)
[2020-04-28] MEDS: predniSONE 20 MG TABLET PO SCH (08:00)
[2020-04-28] MEDS: PILOCARPINE HCL 5 MG PO SCH (08:04)
[2020-04-28] MEDS ORDERED: SODIUM CHLORIDE 0.9% 500 ML IV ONE (08:05)
[2020-04-28] MEDS ORDERED: HYDROXYCHLOROQUINE 200 MG TABLET PO SCH (09:00)
[2020-04-28] MEDS ORDERED: amLODIPine 5 MG TABLET PO SCH (09:00)
[2020-04-28] MEDS ORDERED: SERTRALINE 50 MG TABLET PO SCH (09:00)
[2020-04-28] MEDS ORDERED: ATOMOXETINE HCL 25 MG PO SCH (09:00)
[2020-04-28 12:22] LABS: BASOPHILS % (AUTO) 0.2 %; EOSINOPHILS % (AUTO) 0.2 %; HGB - HEMOGLOBIN 7.8 g/dL (12.0-16.0); LYMPHOCYTES # (AUTO) 0.8 10^3/uL (1.5-3.5); MEAN CORPUSCULAR HEMOGLOBIN 33.3 pg (27.0-31.0); MEAN CORPUSCULAR HGB CONC 32.9 g/dL (32.0-36.0); MEAN CORPUSCULAR VOLUME 101.3 fL (81.0-99.0); MONOCYTES # (AUTO) 0.4 10^3/uL (0.0-1.0); MONOCYTES % (AUTO) 4.4 %; NEUTROPHILS # (AUTO) 8.2 10^3/uL (1.5-6.6); NEUTROPHILS % (AUTO) 86.1 %; RED BLOOD COUNT 2.34 10^6/uL (4.20-5.40); RED CELL DISTRIBUTION WIDTH 22.3 % (12.0-15.0); WHITE BLOOD COUNT 9.5 x10^3/uL (4.8-10.8)
[2020-04-28 12:28] LABS: PLT - PLATELET COUNT 5 10^3/uL (130-450)
[2020-04-28 12:29] LABS: CREATININE 0.7 mg/dL (0.4-1.0); MAGNESIUM 2.1 mg/dL (1.7-2.8)
[2020-04-28 12:42] LABS: DIFFERENTIAL COMMENT MANUAL=AUTO DIFF; PLATELET ESTIMATE, MANUAL DECREASED (<130,000) (NORMAL); PLATELET MORPHOLOGY NORMAL APPEARANCE (NORMAL)
--- NOTE | 2020-04-28 12:44 | Discharge Plan ---
Discharge Plan Problem Reviewed?: Yes Disposition: Home, Self Care Condition: Fair Prescriptions: predniSONE [Prednisone] 80 mg PO DAILY #120 tablet Diet: Regular Activity Restrictions: Activity as Tolerated Shower Restrictions: No Driving Restrictions: No Health Concerns: You were in Observation status to manage a very low platelet count; you received IVIG and have started Prednisone pills. You are being discharged with a new prescription for the Prednisone; the prescription was electronically sent to your [facility] pharmacy in [place]. Resume any other prehospital medications. According to the plan from [facility]: You should come to the [facility] clinic for a CBC blood test on 04/30/2020. You have office visit scheduled at the [facility] clinic on 05/03/2020 and 05/10/2020. You have new or worsening symptoms, call Dr. Bower or your PCP for advice, or come to the ER. Plan of Treatment: As above. Care Goals: Improvement in symptoms and stabilization are the goals. Assessment: Patient understands and is agreeable with the plan. Follow-Up Care: [facility] - Medical No Smoking: If you smoke, Please STOP! Call for help.
[2020-04-28 13:38] VITALS: BP 135/64
--- NOTE | 2020-04-28 16:47 | DISCHARGE SUMMARY ---
Discharge Summary Admit Date: 04/27/20 Discharge Date: 04/28/20 Discharging Provider: Dr Dariana Alvarenga Primary Care Provider: Dr Darwin Pompa, Dr Cee Bower (Oncologist) Code Status: Attempt Resuscitation Condition at Discharge: Fair Discharge Disposition: 01 Home, Self Care - HPI History of Present Illness: This is a very pleasant 59-year-old white female with history of remote traumatic brain brain injury, history of SLE and Raynaud's phenomenon, Anxiety depression, osteoarthritis and ITP. Since August of this year she has had problems with severe thrombocytopenia, has required admissions to [facility] and management by her oncologist here at [facility]. She was admitted here 1 week ago with epistaxis, severe thrombocytopenia with a platelet count of 2, received platelet transfusion, IVIG (gammaglobulin) and was ordered to start oral Prednisone, but refused it. Epistaxis was incessant and she required air transfer to ENT at [facility] for management. She received platelets and blood transfusion while there. Today she came to the [facility] clinic and lab test showed a platelet count of 1 and she had a brief nosebleed of the other nostril. The [facility] clinic is requesting direct admission for repeat management of thrombocytopenia, planning to use IVIG again and also oral Prednisone, which the patient now agrees to take. Will be placed in observation status. - HOSPITAL COURSE Hospital Course: 1) Thrombocytopenia Patient received 80 g of IVIG without any complications. She was started on Prednisone 80 mg po daily and was discharged with a new prescription for this. Platelet count was 2 the following morning. Later that second day a platelet count was rechecked along with other labs and continued to rise and was 5. There had been no recurrence of epistaxis. Patient was discharged in stable condition 2) Idiopathic thrombocytopenic purpura She is to see [facility] clinic in 2 days for a CBC and see [facility] clinic on 5 days for an appointment. She was told to resume all her prehospital medications. 3) Pre-renal azotemia Her BUN/creatinine at admission was 28/0.7. She had a hypotensive blood pressure of 99-101 systolic. This was treated with 500 cc saline bolus and maintenance fluid at 40 cc/hr overnight. At discharge, her blood pressure was 140/60. At discharge, the BUN/creatinine was 22/0.7. 4) Anemia At admission her hemoglobin was 9.7. There was no change in Hgb the following day. The patient was not dizzy or lightheaded. 5) Systemic lupus erythematosus She was kept on her same medicines for this. 6) Raynaud's phenomenon She was kept on her daily Amlodipine for this. 7) History of recent epistaxis There was no recurrence of epistaxis while she was under Observation status here. 8) Depression and anxiety She was kept on her same medicines for this. - ALLERGIES Allergies/Adverse Reactions: Allergies Allergy/AdvReac Type Severity Reaction Status Date / Time Sulfa (Sulfonamide Allergy Intermediate Hives Verified 04/13/20 09:59 Antibiotics) amoxicillin Allergy Nausea Verified 04/13/20 09:59 - MEDICATIONS Home Medications: Ambulatory Orders Medication Instructions Recorded Confirmed lamoTRIgine [LaMICtal] 200 mg PO QPM 03/31/13 04/28/20 Hydroxychloroquine [Plaquenil] 200 mg PO DAILY 05/27/13 04/28/20 amLODIPine [Norvasc] 5 mg PO DAILY 09/02/13 04/28/20 Pilocarpine HCl 5 mg PO BID 06/02/14 04/28/20 Atomoxetine HCl [Strattera] 25 mg PO DAILY 04/20/20 04/28/20 QUEtiapine [SEROquel] 25 mg PO QPM 04/20/20 04/28/20 Sertraline [Zoloft] 50 mg PO DAILY 04/20/20 04/28/20 Cholecalciferol (Vitamin D3) 5,000 unit PO DAILY 04/27/20 04/28/20 [Vitamin D3] Omeprazole 40 mg PO DAILY 04/27/20 04/28/20 predniSONE [Prednisone] 80 mg PO DAILY #120 tablet 04/28/20 - PHYSICAL EXAM AT DISCHARGE General Appearance: positive: No acute distress, Alert Eyes Bilateral: positive: Normal inspection, EOMI ENT: positive: Other (Small petechiae loida the soft palate over the uvula) Neck: positive: Nml inspection, No JVD Respiratory: positive: No respiratory distress, Breath sounds nml Cardiovascular: positive: Regular rate & rhythm, No murmur Abdomen: positive: Non-tender, No distention Skin: positive: Warm, Dry, Pallor Extremities: positive: No pedal edema Neurologic/Psychiatric: positive: Oriented x3 (Non-focal grossly) - LABS Result Diagrams: 04/28/20 12:06 04/28/20 12:06 - FOLLOW UP Follow Up: Keep follow-up appointment at [facility] clinic on 05/03/20. - TIME SPENT Time Spent in Discharge (Minutes): 30
== END 2020-04-28 13:45 | disposition home or self-care (01) ==
LOC: MS3 14:22
PROVIDERS: ADMIT Internal Medicine; ATTEND Internal Medicine
DX: D69.3 Immune thrombocytopenic purpura (principal); R79.89 Other specified abnormal findings of blood chemistry; D64.9 Anemia, unspecified; M32.9 Systemic lupus erythematosus, unspecified; I73.00 Raynaud's syndrome without gangrene; F32.9 Major depressive disorder, single episode, unspecified; F41.9 Anxiety disorder, unspecified; Z87.820 Personal history of traumatic brain injury; H54.7 Unspecified visual loss; Z79.899 Other long term (current) drug therapy
CPT/HCPCS: 36415; 80048; 83735; 85025

== ENCOUNTER 2020-05-17 12:08 | Observation (INO) | payer OTHER ==
--- NOTE | 2020-05-17 12:54 | ED Physician Documentation ---
PD HPI ALTERED MENTAL STATUS - Stated complaint Stated Complaint: LOC - History obtained from History obtained from: Patient - History of Present Illness Timing - onset: Today (has had bleeding gums and some dark stool for several days to a week. Has ITP and on steroids. Got infusion other med last week and another dose anticipated this week. Had blood count at [facility] today and while waiting for results, got lightheaded and fainted in chair. No fall, no injury. No headache. A) Timing - duration: Seconds (lasted 30 seconds or so then awoke. Looking pale. Sent to ER for eval from [facility].) Timing - details: Abrupt onset, Now resolved Quality / character: Unresponsive Associated symptoms: General weakness, Syncope. No: Fever, Headache, Dyspnea, Cough, NVD Contributing factors: Other (ITP). No: Anticoagulated, Recent illness, Recent injury Basline status: Alert and oriented X 3, Ambulatory Similar symptoms before: Diagnosis (anemia and syncope.) Recently seen: Clinic ([facility] last week on 05/11, and had blood count prior to appt today, had not seen provider today yet.) Review of Systems Constitutional: denies: Fever, Chills Nose: denies: Rhinorrhea / runny nose, Congestion, Epistaxis Throat: reports: Oral lesions / sores (gums bleeding). denies: Sore throat Cardiac: denies: Chest pain / pressure, Pedal edema Respiratory: denies: Cough GI: denies: Abdominal Pain, Nausea, Vomiting : denies: Dysuria, Frequency Neurologic: reports: Generalized weakness. denies: Focal weakness, Numbness, Altered mental status, Headache Endocrine: reports: Easy bruising / bleeding. denies: Weight loss PD PAST MEDICAL HISTORY - Past Medical History Cardiovascular: None, Other Respiratory: None Neuro: Head injury Endocrine/Autoimmune: Systemic lupus erythematosus GI: None AIRPLANE MECHANIC: Other ( w partial hyster) : Other HEENT: Chronic vision loss Psych: Depression, Anxiety Musculoskeletal: Osteoarthritis Derm: Other - Past Surgical History Past Surgical History: Yes Ortho: Knee replacement, Other /AIRPLANE MECHANIC: Hysterectomy, Other - Present Medications Home Medications: Ambulatory Orders Medication Instructions Recorded Confirmed lamoTRIgine [LaMICtal] 200 mg PO QPM 03/31/13 05/11/20 Hydroxychloroquine [Plaquenil] 200 mg PO DAILY 05/27/13 05/11/20 amLODIPine [Norvasc] 5 mg PO DAILY 09/02/13 05/11/20 Pilocarpine HCl 5 mg PO BID 06/02/14 05/11/20 Atomoxetine HCl [Strattera] 25 mg PO DAILY 04/20/20 05/11/20 QUEtiapine [SEROquel] 25 mg PO QPM 04/20/20 05/11/20 Sertraline [Zoloft] 50 mg PO DAILY 04/20/20 05/11/20 Cholecalciferol (Vitamin D3) 5,000 unit PO DAILY 04/27/20 05/11/20 [Vitamin D3] Omeprazole 40 mg PO DAILY 04/27/20 05/11/20 predniSONE [Prednisone] 80 mg PO DAILY #120 tablet 04/28/20 05/11/20 - Allergies Allergies/Adverse Reactions: Allergies Allergy/AdvReac Type Severity Reaction Status Date / Time Sulfa (Sulfonamide Allergy Intermediate Hives Verified 05/11/20 16:36 Antibiotics) amoxicillin Allergy Nausea Verified 05/11/20 16:36 - Social History Does the pt smoke?: No Smoking Status: Never smoker Does the pt drink ETOH?: No Does the pt have substance abuse?: No - Immunizations Immunizations are current?: Yes Immunizations: TDAP current <10years (Last tetanus booster about 8 years ago.) - POLST Patient has POLST: No POLST Status: Full Code PD ED PE NORMAL - Vitals Vital signs reviewed: Yes - General General: Alert and oriented X 3, No acute distress, Well developed/nourished, Other (pale color) - HEENT HEENT: Atraumatic, Dentition benign (gums with slight inflammation, no active bleeding. Dried blood on lips. No noted epistaxis) - Neck Neck: Supple, no meningeal sign, No bony TTP, No adenopathy - Cardiac Cardiac: RRR, No murmur - Respiratory Respiratory: Clear bilaterally - Abdomen Abdomen: Soft, Non tender - Derm Derm: Warm and dry. No: Normal color (pale) - Extremities Extremities: No tenderness to palpate, Normal ROM s pain, No edema, No calf tenderness / cord - Neuro Neuro: Alert and oriented X 3, No motor deficit, Normal speech Results - Vitals Vitals: Oxygen O2 Source Room air - Tele (time rhythm occurred) presentation Telemetry / rhythm strip: NSR PD MEDICAL DECISION MAKING - ED course Complexity details: considered differential, d/w patient, d/w medical economics consultant (Dr. Isaac in [facility] today, who agreed with transfuse 2 units. ) Departure - Departure Disposition: ED Place in Observation Clinical Impression: Episode of syncope, Anemia, Acute ITP Condition: Stable
[2020-05-17] MEDS ORDERED: ONDANSETRON 4 MG/2 ML VIAL IVP PRN (14:17)
[2020-05-17] MEDS ORDERED: SODIUM CHLORIDE FLUSH 0.9% 10 ML SYRINGE IVP PRN (14:17)
[2020-05-17] MEDS ORDERED: ACETAMINOPHEN 325 MG TABLET PO PRN (14:17)
[2020-05-17 16:33] LABS: ALBUMIN/GLOBULIN RATIO 0.9 (1.0-2.2); BILIRUBIN,TOTAL 0.3 mg/dL (0.2-1.0); CALCIUM 8.5 mg/dL (8.5-10.3); CREATININE 0.8 mg/dL (0.4-1.0); MAGNESIUM 2.2 mg/dL (1.7-2.8); TOTAL PROTEIN 6.4 g/dL (6.7-8.2)
--- NOTE | 2020-05-17 16:46 | HISTORY & PHYSICAL EXAMINATION ---
Chief Complaint - Chief Complaint Chief Complaint: Passed out History of Present Illness - Admitted From Admitted From:: [facility] - History Obtained From Records Reviewed: Yes History obtained from: Patient, Son, ER Physician, EMR - History of Present Illness HPI Comment/Other: This is a very pleasant 59-year-old female with a past medical history significant for lupus and ITP who presents today after having a syncopal episode at the [facility]. She states she was at [place] [facility] [place] today to get blood drawn before her appointment tomorrow with her briar shop supervisor. She was sitting down when she started to feel very dizzy and lightheaded and then she passed out in the chair. She was unresponsive for less than a minute before she woke up and is now back to her baseline. She reports no chest pain, palpitations, dyspnea prior to the event. She did feel diaphoretic prior to the event. She reports a similar episode a few weeks ago. She denies any syncope before she has been anemic due to bleeding from the ITP. She has no family history of arrhythmias. She does have a family history of orthostatic hypotension. She currently reports no chest pain, dyspnea. She denies any fevers, chills. She has been bleeding at home over the past few days. Predominantly nosebleeds and bleeding from mouth blisters as well as her gums. She states has been relatively stable but has been going on. She also has dark tarry stools which has been present for over a week now. She continues to bruise quite easily. She was started on Rituxan and Nplate by briar shop supervisor last week. She is scheduled for next dose of Rituxan tomorrow. She has been taking prednisone. In the emergency department, she was found to be hemodynamically stable. Her he moglobin from the [facility] came back at 6.6. Her platelet count is 1000. Given her syncope and anemia, medicine was consulted for admission. The emergency department provider has ordered for 2 units of packed red blood cell. He also spoke with the briar shop supervisor on-call who agreed with 2 units of packed red blood cell and felt that platelet transfusion was not warranted for the time being. I did discuss goals of care with the patient and she is a full code History - Past Medical History Cardiovascular: reports: None, Other (Orthostatic hypotension) Respiratory: reports: None Endocrine/Autoimmune: reports: Systemic lupus erythematosus, Other (ITP) GI: reports: None COLLATOR: reports: Other ( w partial hyster) : reports: Other HEENT: reports: Chronic vision loss Psych: reports: Depression, Anxiety Musculoskeletal: reports: Osteoarthritis Derm: reports: Other MRSA Hx?: No - Past Surgical History Ortho: reports: Knee replacement, Other /COLLATOR: reports: Hysterectomy, Other - Family & Social History Family History Comment/Other: She reports her mother and siblings all have orthostatic hypotension. 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 She lives at home with her and 2 sons. She did smoke for less than 10 years but quit back in the s. She denies any alcohol use. - Substance History Use: Uses substance without health or social issues: NONE - POLST Patient has POLST: No POLST Status: Full Code Meds/Allgy - Home Medications Home Medications: Ambulatory Orders Medication Instructions Recorded Confirmed lamoTRIgine [LaMICtal] 200 mg PO QPM 03/31/13 05/11/20 Hydroxychloroquine [Plaquenil] 200 mg PO DAILY 05/27/13 05/11/20 amLODIPine [Norvasc] 5 mg PO DAILY 09/02/13 05/11/20 Pilocarpine HCl 5 mg PO BID 06/02/14 05/11/20 Atomoxetine HCl [Strattera] 25 mg PO DAILY 04/20/20 05/11/20 QUEtiapine [SEROquel] 25 mg PO QPM 04/20/20 05/11/20 Sertraline [Zoloft] 50 mg PO DAILY 04/20/20 05/11/20 predniSONE [Prednisone] 80 mg PO DAILY #120 tablet 04/28/20 05/11/20 - Allergies Allergies/Adverse Reactions: Allergies Allergy/AdvReac Type Severity Reaction Status Date / Time Sulfa (Sulfonamide Allergy Intermediate Hives Verified 05/11/20 16:36 Antibiotics) amoxicillin Allergy Nausea Verified 05/11/20 16:36 Review of Systems - Constitutional Constitutional: reports: Fatigue, Weakness, Weight gain. denies: Fever, Chills - Ears, Nose & Throat Ears, Nose & Throat: reports: Mouth lesions, Bleeding gums. denies: Nasal congestion, Postnasal drainage, Sore throat - Cardiovascular Cariovascular: reports: Lightheadedness, Syncope. denies: Palpitations, Chest pain, Exertional dyspnea, Decr. exercise tolerance - Respiratory Respiratory: denies: Cough, SOB at rest, SOB with exertion - Gastrointestinal Gastrointestinal: reports: Black stools, Reflux/heartburn. denies: Abdominal pain, Abdominal distention, Bloody stools, Nausea, Vomiting - Genitourinary Genitourinary: denies: Dysuria, Frequency, Hematuria - Musculoskeletal Musculoskeletal: denies: Muscle pain, Muscle weakness - Integumentary Integumentary: denies: Rash - Neurological Neurological: reports: General weakness. denies: Focal weakness - Hematologic/Lymphatic Hematologic/Lymphatic: reports: Anemia, Bruising, Bleeding tendencies - All Other Systems All Other Systems: reports: Reviewed and negative Prior Level of Functionality: She is independent with her ADLs. Exam - Vital Signs Reviewed Vital Signs: Yes - Physical Exam General Appearance: positive: No acute distress, Alert Eyes Bilateral: positive: Normal inspection, Other (Conjuctival pallor.) ENT: positive: Oral lesions (Blood blister noted in the inside of her mouth on the right. Dry blood noted over the gums. There is also evidence of old blood in her nares.), Other Neck: positive: Nml inspection Respiratory: positive: No respiratory distress. negative: Wheezes, Rales Cardiovascular: positive: Regular rate & rhythm, No murmur. negative: Tachycardia, Bradycardia, Systolic murmur Abdomen: positive: Non-tender, No distention. negative: Tenderness, Guarding, Rebound Skin: positive: Warm, Dry, Pallor, Other (Multiple areas of ecchymosis over her bilateral upper extremities, abdomen, back, lower extremities.) Extremities: positive: Full ROM, No pedal edema Neurologic/Psychiatric: positive: Oriented x3, Motor nml. negative: Disoriented to person, Disoriented to place, Disoriented to time Conclusion/Plan - Problem List (1) Idiopathic thrombocytopenic purpura (ITP) Conclusion/Plan: Unfortunately, her platelet count is 1000. This has caused her to have significant ecchymosis and bleeding tendencies leading to anemia. She has not responded to prednisone and IVIG. She is scheduled for another dose of Rituxan tomorrow with her briar shop supervisor. We will look to discharge her tomorrow morning so she can make her 10 AM appointment. We will hold off on platelet transfusion for the time being. Recheck CBC in the morning (2) Anemia Conclusion/Plan: She is anemic again secondary to chronic blood loss from epistaxis due to her ITP. This is also likely why she has melena. Her hemoglobin is less than 7 and we will transfuse her 2 units of packed red blood cell. Fortunately, there is no evidence of significant bleeding at this time. We will recheck a hemoglobin in the morning and if this is stable without evidence of significant bleeding, we will look to discharge her tomorrow morning so she can make her 10 AM appointment with her briar shop supervisor for treatment of her ITP. Qualifiers: Anemia type: iron deficiency Iron deficiency anemia type: chronic blood loss Qualified Code(s): D50.0 - Iron deficiency anemia secondary to blood loss (chronic) (3) Episode of syncope Conclusion/Plan: This may have been due to orthostasis or vasovagal episode. This could also be related to her anemia. She has had a prior episode which occurred when she was anemic. Prior to the anemia she has had over the past 2 months, she has not had any syncopal episodes. We will transfuse her 2 units of packed red blood cell as mentioned above. We will monitor her on telemetry. If she remains hospitalized tomorrow then we will obtain echocardiogram otherwise this can be obtained on an outpatient basis. We will obtain an EKG. We will hold off on trending troponins for the time being as even if they are elevated, is likely demand ischemia from her anemia and she is not a candidate for any intervention given the ITP. Qualifiers: Syncope type: unspecified Qualified Code(s): R55 - Syncope and collapse (4) Lupus Conclusion/Plan: We will continue her home medications. - Lab Results Lab results reviewed: Yes Geovanni Bones: 05/17/20 14:26 Other Lab Results: Her hemoglobin was reportedly 6.6 at the [facility]. - Diagnostic Imaging Results Diagnostic Imaging Results: positive: Final report reviewed Core Measures - Anticipated LOS I expect patient to be DC'd or transferred within 96 hours.: Yes - Issues Hospital Issues and Management Plan: 59-year-old female with ITP presents after having a syncopal episode. Likely related to her anemia. Will place in observation for 2 units of packed red blood cell. Monitor on telemetry.
--- NOTE | 2020-05-17 17:13 | PHARMACY PROGRESS NOTE ---
- Best Possible Medication History Admit Date and Time: 05/17/20 1445 Processed by: Pharmacy Medication History completed: Yes Patient Interview: Pt unable to participate Secondary Source(s): Written medication list, Other family member (interview with son) As the person ultimately responsible for medication therapy, providers are able to order a medication from an existing home medication list in [facility] via the "Reconcile Routine" prior to Confirmation of that medication by support group manager. Such practice is discouraged except when the physician, in their clinical judgment, deems that a medical need exists for a medication without regard to previous use.
[2020-05-17] MEDS ORDERED: predniSONE 20 MG TABLET PO SCH (18:00)
[2020-05-17] MEDS: SODIUM CHLORIDE FLUSH 0.9% 10 ML SYRINGE IVP SCH ×2 (18:13→23:33)
[2020-05-17] MEDS: PILOCARPINE HCL 5 MG PO SCH (20:41)
[2020-05-17] MEDS ORDERED: QUEtiapine 25 MG TABLET PO SCH (21:00)
[2020-05-17] MEDS ORDERED: lamoTRIgine 100 MG TABLET PO SCH (21:00)
[2020-05-18 04:52] LABS: HGB - HEMOGLOBIN 8.3 g/dL (12.0-16.0); LYMPHOCYTES % (AUTO) 56.3 %; MEAN CORPUSCULAR HEMOGLOBIN 28.7 pg (27.0-31.0); MEAN CORPUSCULAR HGB CONC 30.7 g/dL (32.0-36.0); MEAN CORPUSCULAR VOLUME 93.4 fL (81.0-99.0); MONOCYTES % (AUTO) 18.8 %; NEUTROPHILS % (AUTO) 22.8 %; RED BLOOD COUNT 2.89 10^6/uL (4.20-5.40); RED CELL DISTRIBUTION WIDTH 16.5 % (12.0-15.0)
[2020-05-18 05:07] LABS: CREATININE 0.6 mg/dL (0.4-1.0); MAGNESIUM 2.2 mg/dL (1.7-2.8); PHOSPHORUS 4.2 mg/dL (2.5-4.6)
[2020-05-18 05:09] LABS: WHITE BLOOD COUNT 0.5 x10^3/uL (4.8-10.8)
[2020-05-18 05:10] LABS: PLT - PLATELET COUNT 2 10^3/uL (130-450)
[2020-05-18 05:11] LABS: ABNORMAL LYMPHS % (MANUAL) 0 %
[2020-05-18 05:50] LABS: BAND NEUTROPHILS % (MANUAL) 4 %; LYMPHOCYTES # (MANUAL) 0.3 10^3/uL (1.5-3.5); LYMPHOCYTES % (MANUAL) 63 %
[2020-05-18 05:51] LABS: DIFFERENTIAL COMMENT MANUAL DIFFERENTIAL; PLATELET ESTIMATE, MANUAL DECREASED (<130,000) (NORMAL); PLATELET MORPHOLOGY NORMAL APPEARANCE (NORMAL)
--- NOTE | 2020-05-18 08:44 | Discharge Plan ---
Discharge Plan Problem Reviewed?: Yes Disposition: Home, Self Care Condition: Fair Diet: Regular Activity Restrictions: Activity as Tolerated Shower Restrictions: No Driving Restrictions: No Health Concerns: Unfortunately you have quite a bit of history with ITP. You have been treated in the past, the diseases come back and you are currently undergoing no treatment. Complications include nosebleeds, acute blood loss anemia, and a very low platelet count. You are being seen by Dr. Bower from [facility]. You were getting your blood drawn to see how anemic you were and you passed out. You have been brought into the hospital to get 2 units of packed red cell transfusion. Your platelets are still very low and your nosebleeds are still happening. You are being discharged to get Rituxan and other treatment by Dr. Bower today. Plan of Treatment: continue therapy with Dr. Bower. That would include rituxan and intermittent blood and platelet transfusions. Care Goals: to make the ITP resolve with treatment Assessment: patient and son are clear with followup and treatment plan No Smoking: If you smoke, Please STOP! Call for help. Follow-up with: Fara Fung PA-C [Primary Care Provider] -
[2020-05-18] MEDS ORDERED: HYDROXYCHLOROQUINE 200 MG TABLET PO SCH (09:00)
[2020-05-18] MEDS ORDERED: SERTRALINE 50 MG TABLET PO SCH (09:00)
[2020-05-18] MEDS ORDERED: predniSONE 20 MG TABLET PO SCH (09:00)
[2020-05-18] MEDS ORDERED: ATOMOXETINE HCL 25 MG PO SCH (09:00)
[2020-05-18] MEDS: PILOCARPINE HCL 5 MG PO SCH (10:04)
[2020-05-18] MEDS: SODIUM CHLORIDE FLUSH 0.9% 10 ML SYRINGE IVP SCH (10:05)
[2020-05-18 10:07] VITALS: BP 131/67
--- NOTE | 2020-05-18 15:14 | DISCHARGE SUMMARY ---
"Discharge Summary Admit Date: 05/17/20 Discharge Date: 05/18/20 Discharging Provider: Salma Posada MD Primary Care Provider: HUMPHREY Coreas Condition at Discharge: Fair Discharge Disposition: 01 Home, Self Care - DIAGNOSES Discharge Diagnoses with Status of Each Condition: 1. Orthostatic syncope 2. Chronic blood loss anemia 3. Epistaxis 4. ITP, refractory 5. Systemic lupus erythematosus - HPI History of Present Illness: This is a very pleasant 59-year-old female with a past medical history significant for lupus and ITP who presents today after having a syncopal episode at the [facility]. She states she was at the [facility] today to get blood drawn before her appointment tomorrow with her chef kitchen manager. She was sitting down when she started to feel very dizzy and lightheaded and then she passed out in the chair. She was unresponsive for less than a minute before she woke up and is now back to her baseline. She reports no chest pain, palpitations, dyspnea prior to the event. She did feel diaphoretic prior to the event. She reports a similar episode a few weeks ago. She denies any syncope before she has been anemic due to bleeding from the ITP. She has no family history of arrhythmias. She does have a family history of orthostatic hypotension. She currently reports no chest pain, dyspnea. She denies any fevers, chills. She has been bleeding at home over the past few days. Predominantly nosebleeds and bleeding from mouth blisters as well as her gums. She states has been relatively stable but has been going on. She also has dark tarry stools which has been present for over a week now. She continues to bruise quite easily. She was started on Rituxan and Nplate by chef kitchen manager last week. She is scheduled for next dose of Rituxan tomorrow. She has been taking prednisone. In the emergency department, she was found to be hemodynamically stable. Her hemoglobin from the [facility] came back at 6.6. Her platelet count is 1000. Given her syncope and anemia, medicine was consulted for admission. The emergency department provider has ordered for 2 units of packed red blood cell. He also spoke with the chef kitchen manager on-call who agreed with 2 units of packed red blood cell and felt that platelet transfusion was not warranted for the time being. I did discuss goals of care with the patient and she is a full code - Past Medical History Cardiovascular: reports: None, Other (Orthostatic hypotension) Respiratory: reports: None Endocrine/Autoimmune: reports: Systemic lupus erythematosus, Other (ITP) GI: reports: None DAY CARE PROVIDER: reports: Other ( w partial hyster) : reports: Other HEENT: reports: Chronic vision loss Psych: reports: Depression, Anxiety Musculoskeletal: reports: Osteoarthritis - CONSULTS | PROCEDURES Procedures: Transfusions of 2 units of packed red cells - HOSPITAL COURSE Hospital Course: The patient made it very clear that she really wanted to get to her infusions for tomorrow. As such she was transfused 2 units overnight. This was of packed red cells. Posttransfusion hemoglobin was 8.3. She still has pancytopenia with a white cell count of 0.5, and a platelet count of 2. We did think about transfusing her platelets, especially since she is having nosebleeds, but she was adamant that platelets are not going to help her. Transfusions in the past have not done anything for her. And she really wanted to get to the Rituxan infusion. As such she was discharged in stable condition with a guarded prognosis. She says that the ENT person did not do anything for her the last time she had a nosebleed and did not know if she was going to follow-up with them. Exam at discharge had a temperature of 36.8. Pulse was 92-108. Blood pressure 131/67. Respirations 16-24. Room air sat 98% on room air. She is 5 foot 5 inches tall. Pale, fatigued appearing white female who looks older than stated age. Son was in her room with her. Neck was supple. She has increased respiratory rate with exertion when she got out of bed to get in the wheelchair to be wheeled down the hallway for the infusion. Lungs have diminished breath sounds at the bases. Occasional crackles that clear with a deep cough. Regular rate and rhythm and a systolic ejection murmur. Abdomen that had a huge, huge spleen felt all the way to the superior iliac crest. Extremities had mild edema. She is alert, oriented to person place and time. She will follow through with her oncologist about need for platelet transfusion. And I have encouraged her to follow through with ENT for her bloody nose. - ALLERGIES Allergies/Adverse Reactions: Allergies Allergy/AdvReac Type Severity Reaction Status Date / Time Sulfa (Sulfonamide Allergy Intermediate Hives Verified 05/11/20 16:36 Antibiotics) amoxicillin Allergy Nausea Verified 05/11/20 16:36 - MEDICATIONS Home Medications: Ambulatory Orders Medication Instructions Recorded Confirmed lamoTRIgine [LaMICtal] 200 mg PO QPM 03/31/13 05/17/20 Hydroxychloroquine [Plaquenil] 200 mg PO DAILY 05/27/13 05/17/20 amLODIPine [Norvasc] 5 mg PO DAILY 09/02/13 05/17/20 Pilocarpine HCl 5 mg PO BID 06/02/14 05/17/20 Atomoxetine HCl [Strattera] 25 mg PO DAILY 04/20/20 05/17/20 QUEtiapine [SEROquel] 25 mg PO QPM 04/20/20 05/17/20 Sertraline [Zoloft] 50 mg PO DAILY 04/20/20 05/17/20 predniSONE [Prednisone] 80 mg PO DAILY #120 tablet 04/28/20 05/17/20 - LABS Result Diagrams: 05/18/20 04:30 05/18/20 04:30"
== END 2020-05-18 09:45 | disposition home or self-care (01) ==
LOC: ED 12:08 → MS2 14:17 → UNDOADMOB 14:17 → MS2 14:45
PROVIDERS: ADMIT Internal Medicine; ATTEND Specialist
DX: I95.1 Orthostatic hypotension (principal); D50.0 Iron deficiency anemia secondary to blood loss (chronic); R04.0 Epistaxis; D69.3 Immune thrombocytopenic purpura; M32.9 Systemic lupus erythematosus, unspecified; D61.818 Other pancytopenia; F32.9 Major depressive disorder, single episode, unspecified; F41.9 Anxiety disorder, unspecified; H54.7 Unspecified visual loss; Z79.52 Long term (current) use of systemic steroids; Z79.899 Other long term (current) drug therapy; Z87.891 Personal history of nicotine dependence
CPT/HCPCS: 36415; 36430; 80048; 80053; 83735; 84100; 85025; 86850; 86900; 86901; 86920; 93005; 99284; 99285; A9270; G0378; J7512; P9016

== ENCOUNTER 2020-05-25 07:31 | Outpatient (CLI) | payer OTHER | END 2020-05-25 07:32 | disposition critical access hospital (66) | LOC: EMS 07:31 | PROVIDERS: ATTEND Surgery | DX: R55 Syncope and collapse (principal) | CPT/HCPCS: A0425; A0429 ==

== ENCOUNTER 2020-05-25 07:56 | Emergency (ER) | payer OTHER ==
--- NOTE | 2020-05-25 08:01 | ED Physician Documentation ---
PD HPI SYNCOPE - Stated complaint Stated Complaint: SYNCOPE - History obtained from History obtained from: Patient - History of Present Illness Witnessed: Witnessed Timing - onset: Today (The patient states she has been having ongoing bleeding from the gums and back of the nose with some postnasal drainage but not significant abrupt bleeding. She has had dark stool as well. She is feeling general weakness worsening the last few days and this morning had syncope when getting up.) Duration: Seconds (10-15) Preceding symptoms: Light headed, Generalized weakness. No: Headache, Abdominal pain Associated symptoms: Other (bleeding melena and from nose/gums). No: Headache, Chest pain, Abdominal pain Contributing factors: Just stood up, Other (ongoing bleeding associated with ITP.). No: Recent med change Injury occurred: No: Fell (she slumped between bed anbd dresser, denies full fall.), Head injury Recently seen: Clinic (Seen last week and got IV infusion of Rituxan. She is due to get another dose tomorrow. She was to get an infusion of another medicine today to help with her ITP.), Emergency Dept, Admitted (Transfusion of 2 units of blood last week due to weakness and low blood count related to mild steady blood loss from ITP.), Other (Her blood count was gradual and explainable last week with mild steady losses. However her blood count this week is abruptly lower with description of more melena so concerning for GI loss as opposed to swallowed blood from nasopharynx) Review of Systems Constitutional: reports: Fatigue. denies: Fever, Chills, Myalgias Nose: reports: Epistaxis (She has noticed some mild postnasal dark blood. No anterior epistaxis. She has had some bleeding from the gums. She has noticed melena.). denies: Rhinorrhea / runny nose, Congestion Throat: reports: Oral lesions / sores. denies: Sore throat Cardiac: denies: Chest pain / pressure, Palpitations Respiratory: reports: Dyspnea. denies: Cough, Wheezing GI: reports: Bloody / black stool. denies: Abdominal Pain, Nausea, Vomiting, Diarrhea Skin: denies: Rash, Lesions Endocrine: reports: Easy bruising / bleeding PD PAST MEDICAL HISTORY - Past Medical History Cardiovascular: None, Other Respiratory: None Neuro: Head injury Endocrine/Autoimmune: Systemic lupus erythematosus, Other GI: None [employer]: Other ( w partial hyster) : Other HEENT: Chronic vision loss Psych: Depression, Anxiety Musculoskeletal: Osteoarthritis Derm: Other - Past Surgical History Past Surgical History: Yes Ortho: Knee replacement, Other /[employer]: Hysterectomy, Other - Present Medications Home Medications: Ambulatory Orders Medication Instructions Recorded Confirmed lamoTRIgine [LaMICtal] 200 mg PO QPM 03/31/13 05/17/20 Hydroxychloroquine [Plaquenil] 200 mg PO DAILY 05/27/13 05/17/20 amLODIPine [Norvasc] 5 mg PO DAILY 09/02/13 05/17/20 Pilocarpine HCl 5 mg PO BID 06/02/14 05/17/20 Atomoxetine HCl [Strattera] 25 mg PO DAILY 04/20/20 05/17/20 QUEtiapine [SEROquel] 25 mg PO QPM 04/20/20 05/17/20 Sertraline [Zoloft] 50 mg PO DAILY 04/20/20 05/17/20 predniSONE [Prednisone] 80 mg PO DAILY #120 tablet 04/28/20 05/17/20 - Allergies Allergies/Adverse Reactions: Allergies Allergy/AdvReac Type Severity Reaction Status Date / Time Sulfa (Sulfonamide Allergy Intermediate Hives Verified 05/25/20 08:07 Antibiotics) amoxicillin Allergy Nausea Verified 05/25/20 08:07 - Social History Does the pt smoke?: No Smoking Status: Former smoker Does the pt drink ETOH?: No Does the pt have substance abuse?: No - Immunizations Immunizations are current?: Yes Immunizations: TDAP current <10years (Last tetanus booster about 8 years ago.) - POLST Patient has POLST: No POLST Status: Full Code PD ED PE NORMAL - Vitals Vital signs reviewed: Yes - General General: Alert and oriented X 3, No acute distress, Well developed/nourished - HEENT HEENT: Atraumatic, Other (Dried blood on her lips. There is some mild dark blood noted along the gumline diffusely. There is no ongoing visible drainage in the posterior throat. Anterior nares are without any bleeding at this time) - Neck Neck: Supple, no meningeal sign, No adenopathy, No JVD - Cardiac Cardiac: RRR, No murmur - Respiratory Respiratory: Clear bilaterally - Abdomen Abdomen: Soft, Non tender - Derm Derm: Normal color, Warm and dry - Extremities Extremities: No tenderness to palpate, Normal ROM s pain, No edema, No calf tenderness / cord - Neuro Neuro: Alert and oriented X 3, No motor deficit, No sensory deficit, Normal speech Eye Opening: Spontaneous Motor: Obeys Commands Verbal: Oriented GCS Score: 15 - Psych Psych: Normal mood Results - Vitals Vitals: Vital Signs - 24 hr 05/25/20 05/25/20 05/25/20 07:57 08:30 09:30 Temperature 37.4 C Heart Rate 93 84 85 Respiratory 21 15 16 Rate Blood Pressure 102/45 L 95/45 L 104/46 L O2 Saturation 98 99 100 05/25/20 05/25/20 05/25/20 10:00 10:53 11:00 Temperature 36.9 C 36.7 C Heart Rate 88 90 92 Respiratory 15 20 17 Rate Blood Pressure 100/42 L 106/50 L 103/47 L O2 Saturation 100 05/25/20 05/25/20 05/25/20 11:10 12:00 12:31 Temperature 36.6 C 37.2 C 37.2 C Heart Rate 87 92 92 Respiratory 18 16 16 Rate Blood Pressure 103/50 L 102/51 L 102/51 L O2 Saturation 96 05/25/20 05/25/20 05/25/20 13:23 13:27 13:39 Temperature 37.2 C 37.0 C 37 C Heart Rate 90 88 83 Respiratory 16 17 15 Rate Blood Pressure 109/54 L 109/54 L 106/55 L O2 Saturation 100 05/25/20 05/25/20 05/25/20 13:44 14:14 15:15 Temperature 37 C 37.1 C 36.9 C Heart Rate 87 89 84 Respiratory 15 15 15 Rate Blood Pressure 105/55 L 110/53 L 115/53 L O2 Saturation 05/25/20 05/25/20 05/25/20 16:00 16:21 16:41 Temperature 37 C 37 C 37.2 C Heart Rate 88 88 90 Respiratory 16 16 16 Rate Blood Pressure 113/62 113/62 123/56 L O2 Saturation 100 05/25/20 16:53 Temperature 37.2 C Heart Rate 91 Respiratory 16 Rate Blood Pressure 123/56 L O2 Saturation Oxygen O2 Source Room air - Labs Labs: Laboratory Tests 05/25/20 05/25/20 05/25/20 08:14 08:14 08:27 WBC 2.2 L RBC 1.24 L Hgb 3.4 L* Hct 12.2 L* MCV 98.4 MCH 27.4 MCHC 27.9 L RDW 16.7 H Plt Count 1 L* Neut # (Auto) Not Reportable Lymph # (Auto) Not Reportable [place] # (Auto) Not Reportable Eos # (Auto) Not Reportable Baso # (Auto) Not Reportable Absolute Nucleated RBC Not Reportable Total Counted 100 Band Neuts % (Manual) 5 Abnorm Lymph % (Manual) 0 Metamyelocytes % 1 H Nucleated RBC % Not Reportable Neutrophils # (Manual) 0.4 L* Lymphocytes # (Manual) 1.5 Monocytes # (Manual) 0.3 Eosinophils # (Manual) 0.0 Basophils # (Manual) 0.0 Nucleated RBCs 7 Differential Comment MANUAL DIFFERENTIAL WBC Morphology 1+ TOXIC GRANULATION Platelet Estimate DECREASED (<130,000) Platelet Morphology NORMAL APPEARANCE RBC Morph Micro Appear 1+ SCHISTOCYTES Sodium 139 Potassium 3.8 Chloride 106 Carbon Dioxide 26 Anion Gap 7.0 BUN 24 H Creatinine 0.8 Estimated GFR (MDRD) 73 L Glucose 90 Calcium 7.5 L Magnesium 2.3 Total Bilirubin 0.2 AST 14 ALT < 10 L Alkaline Phosphatase 27 L Total Protein 4.4 L Albumin 2.4 L Globulin 2.0 L Albumin/Globulin Ratio 1.2 Lipase 40 Blood Type A POSITIVE Antibody Screen NEGATIVE Crossmatch IS Only See Detail PD MEDICAL DECISION MAKING - ED course Complexity details: re-evaluated patient (The patient's blood pressure is normal but soft with mild relative hypotension. Her heart rate is adequate. She will get transfusions initiated here. Her specialist is in [place] and [facility] does say they will be having beds available in the next few hours.), considered differential (Her blood count is considerably lower from last week suggesting brisker blood loss over the last several days. She will need transfusion. Also given the brisk bleeding, she may need ENT and/or GI evaluation as well.), d/w patient, d/w communication consultant (I talked with Dr. Cee Bower, her exercise physiology professor, who suggested transfer to [facility] for transfusion of blood which we will initiate here but also other medications and likely specialist evaluation for sources of bleeding. Defer any platelet infusions until just prior to procedures) ED course: Prolonged ER stay here pending transfer due to awaiting bed availability at [facility]. They do state they will have beds available within the next few hours. Departure - Departure Disposition: 02 Transfer Acute Care Hosp Clinical Impression: Severe anemia, Acute blood loss anemia, Posterior epistaxis, Idiopathic thrombocytopenic purpura (ITP) GI bleeding Qualifiers: GI bleed type/associated pathology: unspecified gastrointestinal hemorrhage type Qualified Code(s): K92.2 - Gastrointestinal hemorrhage, unspecified Condition: Stable
[2020-05-25] MEDS ORDERED: SODIUM CHLORIDE 0.9% 500 ML IV STA (08:22)
[2020-05-25] MEDS ORDERED: TRANEXAMIC ACID 1,000 MG in SODIUM CHLORIDE 0.9% 100ML 100 ML IV STA (08:23)
[2020-05-25 08:30] LABS: EOSINOPHILS % (AUTO) 0.9 %; LYMPHOCYTES % (AUTO) 55.1 %; MEAN CORPUSCULAR HEMOGLOBIN 27.4 pg (27.0-31.0); MEAN CORPUSCULAR HGB CONC 27.9 g/dL (32.0-36.0); MEAN CORPUSCULAR VOLUME 98.4 fL (81.0-99.0); MONOCYTES % (AUTO) 13.4 %; RED BLOOD COUNT 1.24 10^6/uL (4.20-5.40); RED CELL DISTRIBUTION WIDTH 16.7 % (12.0-15.0); WHITE BLOOD COUNT 2.2 x10^3/uL (4.8-10.8)
[2020-05-25 08:33] LABS: HGB - HEMOGLOBIN 3.4 g/dL (12.0-16.0); PLT - PLATELET COUNT 1 10^3/uL (130-450)
[2020-05-25 08:34] LABS: ABNORMAL LYMPHS % (MANUAL) 0 %
[2020-05-25 08:38] LABS: ALBUMIN 2.4 g/dL (3.2-5.5); ALBUMIN/GLOBULIN RATIO 1.2 (1.0-2.2); ALKALINE PHOSPHATASE 27 IU/L (42-121); ALT ALANINE AMINOTRANSFERASE < 10 IU/L (10-60); AST ASPARTATE AMINOTRANSFERASE 14 IU/L (10-42); BILIRUBIN,TOTAL 0.2 mg/dL (0.2-1.0); BUN - BLOOD UREA NITROGEN 24 mg/dL (6-20); CALCIUM 7.5 mg/dL (8.5-10.3); CARBON DIOXIDE - CO2 26 mmol/L (21-32); CHLORIDE 106 mmol/L (101-111); CREATININE 0.8 mg/dL (0.4-1.0); GLUCOSE 90 mg/dL (70-100); LIPASE 40 U/L (22-51); MAGNESIUM 2.3 mg/dL (1.7-2.8); SODIUM 139 mmol/L (135-145); TOTAL PROTEIN 4.4 g/dL (6.7-8.2)
[2020-05-25] MEDS ORDERED: SODIUM CHLORIDE 0.9% IV ONE (08:42)
[2020-05-25] MEDS ORDERED: AMINOCAPROIC ACID IV ONE (08:42)
[2020-05-25 09:24] LABS: BAND NEUTROPHILS % (MANUAL) 5 %; BASOPHILS % (MANUAL) 1 %; LYMPHOCYTES # (MANUAL) 1.5 10^3/uL (1.5-3.5); LYMPHOCYTES % (MANUAL) 66 %; METAMYELOCYTES % (MANUAL) 1 %; MONOCYTES # (MANUAL) 0.3 10^3/uL (0.0-1.0)
[2020-05-25 09:25] LABS: PLATELET MORPHOLOGY NORMAL APPEARANCE (NORMAL)
[2020-05-25 09:26] LABS: DIFFERENTIAL COMMENT MANUAL DIFFERENTIAL; PLATELET ESTIMATE, MANUAL DECREASED (<130,000) (NORMAL)
[2020-05-25] MEDS ORDERED: MAG HYDROX/AL HYDROX/SIMETH 30 ML UDC PO STA (15:43)
[2020-05-25] MEDS ORDERED: TRANEXAMIC ACID 1,000 MG/10 ML VIAL ONE (15:55)
[2020-05-25] MEDS ORDERED: DEXAMETHASONE 10 MG/ML VIAL PO STA (17:53)
[2020-05-25] MEDS ORDERED: LIDOCAINE VISCOUS 2% 15 ML UDC MM STA (17:53)
[2020-05-25] MEDS ORDERED: diphenhydrAMINE ELIXIR 25 MG/10 ML UDC PO STA (17:53)
[2020-05-25 18:57] LABS: BILIRUBIN,URINE NEGATIVE (NEGATIVE); GLUCOSE, URINE (UA) NEGATIVE (NEGATIVE); KETONES,URINE (UA) NEGATIVE (NEGATIVE); LEUKOCYTE ESTERASE, URINE SMALL (NEGATIVE); NITRITE,URINE NEGATIVE (NEGATIVE); OCCULT BLOOD,URINE NEGATIVE (NEGATIVE); PROTEIN,URINE NEGATIVE (NEGATIVE); UROBILINOGEN,URINE 0.2 (NORMAL) E.U./dL (NORMAL)
[2020-05-25 18:59] LABS: CLARITY,URINE CLEAR (CLEAR)
[2020-05-25 19:09] LABS: BACTERIA,URINE Rare /HPF (None Seen); RBC,URINE None Seen /HPF (0-5); SQUAMOUS EPITHELIAL CELL,UR MOD Squamous (<= Few)
[2020-05-25 23:04] LABS: BASOPHILS % (AUTO) 0.7 %; EOSINOPHILS % (AUTO) 0.7 %; HGB - HEMOGLOBIN 9.9 g/dL (12.0-16.0); LYMPHOCYTES % (AUTO) 22.4 %; MEAN CORPUSCULAR HEMOGLOBIN 30.2 pg (27.0-31.0); MEAN CORPUSCULAR HGB CONC 33.6 g/dL (32.0-36.0); MEAN CORPUSCULAR VOLUME 89.9 fL (81.0-99.0); NEUTROPHILS % (AUTO) 53.7 %; RED BLOOD COUNT 3.28 10^6/uL (4.20-5.40); RED CELL DISTRIBUTION WIDTH 15.6 % (12.0-15.0)
[2020-05-25 23:07] LABS: PLT - PLATELET COUNT 1 10^3/uL (130-450); WHITE BLOOD COUNT 1.5 x10^3/uL (4.8-10.8)
[2020-05-25 23:09] LABS: ABNORMAL LYMPHS % (MANUAL) 0 %
[2020-05-25 23:30] LABS: BAND NEUTROPHILS % (MANUAL) 12 %; BASOPHILS % (MANUAL) 1 %; LYMPHOCYTES # (MANUAL) 0.4 10^3/uL (1.5-3.5); LYMPHOCYTES % (MANUAL) 29 %; METAMYELOCYTES % (MANUAL) 1 %; MONOCYTES # (MANUAL) 0.1 10^3/uL (0.0-1.0); MYELOCYTES % (MANUAL) 1 %
[2020-05-25 23:31] LABS: DIFFERENTIAL COMMENT MANUAL DIFFERENTIAL; PLATELET ESTIMATE, MANUAL DECREASED (<130,000) (NORMAL)
[2020-05-26 06:31] LABS: HGB - HEMOGLOBIN 9.3 g/dL (12.0-16.0); LYMPHOCYTES % (AUTO) 27.5 %; MEAN CORPUSCULAR HEMOGLOBIN 29.6 pg (27.0-31.0); MEAN CORPUSCULAR HGB CONC 32.4 g/dL (32.0-36.0); MEAN CORPUSCULAR VOLUME 91.4 fL (81.0-99.0); MONOCYTES % (AUTO) 28.2 %; NEUTROPHILS % (AUTO) 39.7 %; RED BLOOD COUNT 3.14 10^6/uL (4.20-5.40); RED CELL DISTRIBUTION WIDTH 16.1 % (12.0-15.0)
[2020-05-26 06:37] LABS: PLT - PLATELET COUNT 2 10^3/uL (130-450); WHITE BLOOD COUNT 1.4 x10^3/uL (4.8-10.8)
[2020-05-26 06:38] LABS: ABNORMAL LYMPHS % (MANUAL) 0 %
[2020-05-26 07:35] LABS: BAND NEUTROPHILS % (MANUAL) 12 %; LYMPHOCYTES # (MANUAL) 0.3 10^3/uL (1.5-3.5); LYMPHOCYTES % (MANUAL) 23 %; METAMYELOCYTES % (MANUAL) 5 %; MONOCYTES # (MANUAL) 0.5 10^3/uL (0.0-1.0); MYELOCYTES % (MANUAL) 1 %
[2020-05-26 07:41] LABS: DIFFERENTIAL COMMENT MANUAL DIFFERENTIAL; PLATELET ESTIMATE, MANUAL DECREASED (<130,000) (NORMAL); PLATELET MORPHOLOGY NORMAL APPEARANCE (NORMAL)
--- NOTE | 2020-05-26 09:08 | ED Physician Documentation ---
ED Addendum - Addendum Addendum: 05/26/20 09:08 Patient seen at bedside. Briefly she has ITP which has been recalcitrant to treatment. Recurrent nosebleeds, potentially causing dark and tarry stools. Hemoglobin was down at 3.4, after transfusion now she is at 9.3. No active ongoing bleeding. We are waiting for a bed at [place] since that is where her specialty care has been done. Essentially around noon today. Patient has no specific complaints right now. 05/26/20 17:14 Accepted via the [employer] pro line by Dr. Froy Campbell at [place]. [place] were completed.
[2020-05-26] MEDS ORDERED: D5.45NS W/20 MEQ KCL 1,000 ML IV SCH (17:00)
[2020-05-26 17:01] LABS: EOSINOPHILS % (AUTO) 1.4 %; HGB - HEMOGLOBIN 9.2 g/dL (12.0-16.0); LYMPHOCYTES % (AUTO) 50.7 %; MEAN CORPUSCULAR HEMOGLOBIN 29.1 pg (27.0-31.0); MEAN CORPUSCULAR HGB CONC 31.9 g/dL (32.0-36.0); MEAN CORPUSCULAR VOLUME 91.1 fL (81.0-99.0); MONOCYTES % (AUTO) 17.4 %; NEUTROPHILS % (AUTO) 27.2 %; RED BLOOD COUNT 3.16 10^6/uL (4.20-5.40); RED CELL DISTRIBUTION WIDTH 15.7 % (12.0-15.0); WHITE BLOOD COUNT 2.1 x10^3/uL (4.8-10.8)
[2020-05-26 17:05] LABS: CALCIUM 8.1 mg/dL (8.5-10.3); CREATININE 0.7 mg/dL (0.4-1.0)
[2020-05-26 17:12] LABS: PLT - PLATELET COUNT 1 10^3/uL (130-450)
[2020-05-26 17:13] LABS: ABNORMAL LYMPHS % (MANUAL) 0 %
[2020-05-26 17:35] LABS: BAND NEUTROPHILS % (MANUAL) 3 %; LYMPHOCYTES # (MANUAL) 1.4 10^3/uL (1.5-3.5); LYMPHOCYTES % (MANUAL) 67 %; MONOCYTES # (MANUAL) 0.2 10^3/uL (0.0-1.0)
[2020-05-26 17:36] LABS: DIFFERENTIAL COMMENT MANUAL DIFFERENTIAL; PLATELET ESTIMATE, MANUAL DECREASED (<130,000) (NORMAL); PLATELET MORPHOLOGY NORMAL APPEARANCE (NORMAL)
[2020-05-26 19:30] VITALS: BP 105/76
== END 2020-05-26 19:35 | disposition short-term general hospital (02) ==
LOC: EDUNIT# → ED 07:56
DX: D62 Acute posthemorrhagic anemia (principal); R04.0 Epistaxis; K92.1 Melena; D69.3 Immune thrombocytopenic purpura; R55 Syncope and collapse; M32.9 Systemic lupus erythematosus, unspecified; Z87.891 Personal history of nicotine dependence
CPT/HCPCS: 36415; 36430; 80048; 80053; 81001; 83690; 83735; 85025; 86850; 86900; 86901; 86920; 93005; 96361; 96365; 96375; 99284; 99285; A9270; P9016; 81003; 87086

== ENCOUNTER 2020-09-11 08:00 | Outpatient (CLI) | payer OTHER | END 2020-09-11 23:59 | disposition home or self-care (01) | LOC: LAB.N 08:00 | PROVIDERS: ATTEND Physician Assistant Medical | DX: N30.00 Acute cystitis without hematuria (principal) | CPT/HCPCS: 87086 ==

== ENCOUNTER 2020-09-16 08:00 | Outpatient (CLI) | payer OTHER ==
[2020-09-16 20:47] LABS: BASOPHILS # (AUTO) 0.1 10^3/uL (0.0-0.1); BASOPHILS % (AUTO) 1.2 %; EOSINOPHILS # (AUTO) 0.2 10^3/uL (0.0-0.7); EOSINOPHILS % (AUTO) 4.1 %; HGB - HEMOGLOBIN 11.3 g/dL (12.0-16.0); LYMPHOCYTES # (AUTO) 0.5 10^3/uL (1.5-3.5); LYMPHOCYTES % (AUTO) 10.8 %; MEAN CORPUSCULAR HEMOGLOBIN 23.4 pg (27.0-31.0); MEAN CORPUSCULAR HGB CONC 27.6 g/dL (32.0-36.0); MEAN CORPUSCULAR VOLUME 84.7 fL (81.0-99.0); MEAN PLATELET VOLUME 9.9 fL (7.9-10.8); MONOCYTES # (AUTO) 0.4 10^3/uL (0.0-1.0); MONOCYTES % (AUTO) 9.3 %; NEUTROPHILS # (AUTO) 3.1 10^3/uL (1.5-6.6); NEUTROPHILS % (AUTO) 74.4 %; PLT - PLATELET COUNT 332 10^3/uL (130-450); RED BLOOD COUNT 4.83 10^6/uL (4.20-5.40); RED CELL DISTRIBUTION WIDTH 25.4 % (12.0-15.0); WHITE BLOOD COUNT 4.2 x10^3/uL (4.8-10.8)
[2020-09-16 20:57] LABS: ALBUMIN 4.1 g/dL (3.2-5.5); ALBUMIN/GLOBULIN RATIO 1.6 (1.0-2.2); ALKALINE PHOSPHATASE 84 IU/L (42-121); ALT ALANINE AMINOTRANSFERASE < 10 IU/L (10-60); AST ASPARTATE AMINOTRANSFERASE 23 IU/L (10-42); BILIRUBIN,TOTAL 0.3 mg/dL (0.2-1.0); BUN - BLOOD UREA NITROGEN 12 mg/dL (6-20); CALCIUM 9.2 mg/dL (8.5-10.3); CARBON DIOXIDE - CO2 28 mmol/L (21-32); CHLORIDE 105 mmol/L (101-111); CREATININE 0.7 mg/dL (0.4-1.0); GLUCOSE 86 mg/dL (70-100); LIPASE 44 U/L (22-51); TOTAL PROTEIN 6.7 g/dL (6.7-8.2)
[2020-09-16 21:02] LABS: PLATELET ESTIMATE, MANUAL NORMAL (130-450,000) (NORMAL); PLATELET MORPHOLOGY NORMAL APPEARANCE (NORMAL); RBC MORPHOLOGY (MULTIPLE) NORMAL APPEARANCE (NORMAL)
[2020-09-16 23:33] LABS: CANDIDA KRUSEI DNA NEGATIVE (NEGATIVE); TRICHOMONAS VAGINALIS DNA NEGATIVE (NEGATIVE)
[2020-09-16 23:34] LABS: CANDIDA GROUP DNA NEGATIVE (NEGATIVE)
== END 2020-09-16 23:59 | disposition home or self-care (01) ==
LOC: LAB.N 08:00
PROVIDERS: ATTEND Family Medicine
DX: R10.32 Left lower quadrant pain (principal)
CPT/HCPCS: 36415; 80053; 83690; 85025; 87661; 87801

== ENCOUNTER 2020-09-16 17:38 | Outpatient (CLI) | payer OTHER ==
--- NOTE | 2020-09-17 08:29 | XRAY Report ---
PROCEDURE: Abdomen 1 View X-Ray INDICATIONS: ABDOMINAL PX TECHNIQUE: 1 view of the abdomen were acquired. COMPARISON: Prior CT scanning of the abdomen/pelvis 03/24/2014 FINDINGS: Surgical changes and devices: 2 adjacent linear radiodensities are seen at the medial left upper quad rant, each measuring approximately 1.6 cm in length and 3 mm in transverse dimension. Some surgical d evice is the presumed cause.. Bowel: No pneumoperitoneum. The bowel gas pattern is normal except for mild to moderate right-sided colonic obstipation. Soft tissues: No masses; visualized solid organ contours appear normal in size. No suspicious abdom inal calcifications. Bones: No suspicious bony abnormalities. IMPRESSION: Mild to moderate right colonic obstipation. 2 apparent small surgical devices medial lef t upper quadrant each measuring approximately 1.6 x 0.3 cm. These were not present on prior CT scanni ng from 2013.. Reviewed by: Justin Rodriguez MD on 09/17/2020 8:28 AM PST Approved by: Justin Rodriguez MD on 09/17/2020 8:28 AM PST Station ID: [id number]
== END 2020-09-16 23:59 | disposition home or self-care (01) ==
LOC: DI.N 17:38
PROVIDERS: ATTEND Physician Assistant Medical
DX: K59.00 Constipation, unspecified (principal); R10.32 Left lower quadrant pain; Z97.8 Presence of other specified devices
CPT/HCPCS: 36415; 80053; 83690; 85025; 87661; 87801

== ENCOUNTER 2020-10-21 08:00 | Outpatient (CLI) | payer OTHER | END 2020-10-21 23:59 | disposition home or self-care (01) | LOC: LAB.WCP 08:00 | PROVIDERS: ATTEND Physician Assistant Medical | DX: M79.671 Pain in right foot (principal) | CPT/HCPCS: 36415; 85651; 86140 ==

== ENCOUNTER 2020-10-21 15:26 | Outpatient (CLI) | payer OTHER ==
--- NOTE | 2020-10-21 16:45 | XRAY Report ---
PROCEDURE: Foot 3 View RT INDICATIONS: RIGHT FOOT PAIN TECHNIQUE: 3 views of the foot were acquired. COMPARISON: X-ray foot 09/27/2016 FINDINGS: Bones: No fractures or dislocations. No suspicious bony lesions. Prominent hallux valgus deformity is present at the first digit, relatively unchanged compared to prior exam. Severe joint space narro wing and subchondral sclerosis is present. Scattered areas of IP degenerative narrowing are present. Soft tissues: No tibiotalar joint effusion. Achilles tendon appears normal. IMPRESSION: Prominent hallux valgus deformity as above. Scattered IP arthritic changes. Reviewed by: Sudha Reddy MD on 10/21/2020 4:44 PM PDT Approved by: Sudha Reddy MD on 10/21/2020 4:44 PM PDT Station ID: [id number]
== END 2020-10-21 15:27 | disposition home or self-care (01) ==
LOC: DI.N 15:26
PROVIDERS: ATTEND Physician Assistant Medical
DX: M20.11 Hallux valgus (acquired), right foot (principal); M19.071 Primary osteoarthritis, right ankle and foot; M79.671 Pain in right foot
CPT/HCPCS: 36415; 85651; 86140

== ENCOUNTER 2021-04-20 15:23 | Outpatient (CLI) | payer OTHER ==
[2021-04-20 16:03] LABS: BILIRUBIN,URINE NEGATIVE (NEGATIVE); CLARITY,URINE CLEAR (CLEAR); GLUCOSE, URINE (UA) NEGATIVE (NEGATIVE); KETONES,URINE (UA) NEGATIVE (NEGATIVE); LEUKOCYTE ESTERASE, URINE TRACE (NEGATIVE); NITRITE,URINE NEGATIVE (NEGATIVE); OCCULT BLOOD,URINE NEGATIVE (NEGATIVE); PH,URINE 5.5 PH (5.0-7.5); PROTEIN,URINE NEGATIVE (NEGATIVE); UROBILINOGEN,URINE 0.2 (NORMAL) E.U./dL (NORMAL)
[2021-04-20 16:16] LABS: ALBUMIN 4.4 g/dL (3.2-5.5); ALBUMIN/GLOBULIN RATIO 1.5 (1.0-2.2); BILIRUBIN,TOTAL 0.5 mg/dL (0.2-1.0); CALCIUM 9.4 mg/dL (8.5-10.3); CREATININE 0.8 mg/dL (0.4-1.0); POTASSIUM 3.6 mmol/L (3.5-5.0); TOTAL PROTEIN 7.3 g/dL (6.7-8.2)
[2021-04-20 16:17] LABS: CREATININE,URINE 216.3 mg/dL; PROTEIN/CREATININE RATIO,URINE 0.1 (<=0.2)
[2021-04-20 17:13] LABS: AMORPHOUS SEDIMENT,UR Rare /LPF; BACTERIA,URINE Few /HPF (None Seen); CRYSTALS,URINE 11-25 Ca Oxalate /LPF; MUCUS,URINE Marked Strands; RBC,URINE 0-5 /HPF (0-5); SQUAMOUS EPITHELIAL CELL,UR FEW Squamous (<= Few)
[2021-04-22 14:22] LABS: DNA (DS) ANTIBODY <1 IU/mL
[2021-04-22 14:30] LABS: COMPLEMENT COMPONENT C3C 163 mg/dL (83-193); COMPLEMENT COMPONENT C4C 37 mg/dL (15-57)
== END 2021-04-20 15:24 | disposition home or self-care (01) ==
LOC: LAB 15:23
PROVIDERS: ATTEND Internal Medicine Rheumatology
DX: M32.10 Systemic lupus erythematosus, organ or system involvement unspecified (principal)
CPT/HCPCS: 36415; 80053; 81001; 82570; 84156; 85651; 86160; 86225

== ENCOUNTER 2021-11-08 11:48 | Outpatient (CLI) | payer OTHER ==
[2021-11-08 19:15] LABS: ALBUMIN 4.3 g/dL (3.2-5.5); ALBUMIN/GLOBULIN RATIO 1.4 (1.0-2.2); ALKALINE PHOSPHATASE 81 IU/L (42-121); ALT ALANINE AMINOTRANSFERASE < 10 IU/L (10-60); AST ASPARTATE AMINOTRANSFERASE 21 IU/L (10-42); BILIRUBIN,TOTAL 0.5 mg/dL (0.2-1.0); BUN - BLOOD UREA NITROGEN 9 mg/dL (6-20); CALCIUM 9.3 mg/dL (8.5-10.3); CARBON DIOXIDE - CO2 27 mmol/L (21-32); CHLORIDE 103 mmol/L (101-111); CHOL/HDL RATIO 3.3 (<4.4); CHOLESTEROL 239 mg/dL; CREATININE 0.7 mg/dL (0.4-1.0); GFR - MDRD 85 (>89); GLUCOSE 85 mg/dL (70-100); HDL CHOLESTEROL 73 mg/dL; LDL CHOLESTEROL,CALCULATED 145 mg/dL; POTASSIUM 4.2 mmol/L (3.5-5.0); SODIUM 139 mmol/L (135-145); TOTAL PROTEIN 7.3 g/dL (6.7-8.2); TRIGLYCERIDES 105 mg/dL; VLDL CHOLESTEROL 21 mg/dL
[2021-11-08 19:20] LABS: THYROID STIMULATING HORMONE 0.78 uIU/mL (0.34-5.60)
== END 2021-11-08 11:49 | disposition home or self-care (01) ==
LOC: LAB.N 11:48
PROVIDERS: ATTEND Physician Assistant Medical
DX: Z00.00 Encounter for general adult medical examination without abnormal findings (principal)
CPT/HCPCS: 36415; 80053; 80061; 83721; 84443

== ENCOUNTER 2021-11-21 13:53 | Outpatient (CLI) | payer OTHER ==
--- NOTE | 2021-11-21 17:15 | XRAY Report ---
PROCEDURE: Lumbar Spine 2 View INDICATIONS: CHRONIC LOW BACK PX TECHNIQUE: 3 views of the lumbar spine were acquired. COMPARISON: None. FINDINGS: Bones: 5 [id number] vertebrae are present. There is 3 to 4 mm retrolisthesis of L2 on L3 and 5 mm anterolisthesis of L4 on L5. Degenerative endplate changes throughout lumbar spine is seen. No v ertebral body compression fractures. No suspicious bony lesions. Soft tissues: Overlying bowel gas pattern is normal. No suspicious soft tissue calcifications. IMPRESSION: 1. Grade 1 spondylolisthesis at L2-3 and L4-5 levels as described above. No acute compression fractur e. Degenerative disc disease throughout lumbar spine. Reviewed by: Soren Black MD on 11/21/2021 5:13 PM PDT Approved by: Soren Black MD on 11/21/2021 5:13 PM PDT Station ID: [id number]
== END 2021-11-21 13:54 | disposition home or self-care (01) ==
LOC: DI.N 13:53
PROVIDERS: ATTEND Physician Assistant Medical
DX: M51.36 Other intervertebral disc degeneration, lumbar region (principal); M43.16 Spondylolisthesis, lumbar region

== ENCOUNTER 2022-04-03 11:25 | Outpatient (CLI) | payer OTHER ==
--- NOTE | 2022-04-04 10:06 | Mammography Report ---
BILATERAL DIGITAL SCREENING MAMMOGRAM 3D/2D: 04/03/2022 CLINICAL: Routine screening. Comparison is made to exams dated: 10/04/2018 mammogram, 09/20/2018 mammogram, 07/15/2015 mammogram, mammogram, and 06/28/2012 mammogram - [facility]. There are scattered areas of fibroglandular density in both breasts (category b / 25%-50% glandular t issue). There is a new 0.4 cm oval equal density focal asymmetry in the right breast at 7 o'clock middle dept h. No other significant masses, calcifications, or other findings are seen in either breast. IMPRESSION: INCOMPLETE: NEEDS ADDITIONAL IMAGING EVALUATION The new 0.4 cm oval equal density focal asymmetry in the right breast resembles a cyst or a lymph nod e and is indeterminate. Additional views with possible ultrasound are recommended. Based on the Tyrer Cuzick model (a risk assessment model) the patients lifetime risk is 11.2% and he r 10 year risk is 4.9%. According to the ACR, ACS, and NCCN guidelines, an annual breast MRI exam radha ng with mammogram is recommended if the patients lifetime risk is 20% or greater. This exam was interpreted at Station ID: [id number]. NOTE: For mammograms, a report in lay terms will be sent to the patient. Approximately 15% of breast malignancies will not be visualized mammographically. In the management of a palpable breast mass, a negative mammogram must not discourage biopsy of a clinically suspicious lesion. Electronically Signed By: David Ramos M.D. aty/:04/03/2022 13:38:39 ACR BI-RADS Category 0: Incomplete 3340F PARENCHYMAL PATTERN: (A) - The breast(s) demonstrate(s) scattered fibroglandular densities. BI-RADS CATEGORY: (0) - 0 Mammo and US [id number] Immediate follow-up LATERALITY: (R)
== END 2022-04-03 11:26 | disposition home or self-care (01) ==
LOC: DI.N 11:25
DX: Z12.31 Encounter for screening mammogram for malignant neoplasm of breast (principal); R92.8 Other abnormal and inconclusive findings on diagnostic imaging of breast

== ENCOUNTER 2022-05-22 12:35 | Outpatient (CLI) | payer OTHER ==
--- NOTE | 2022-05-23 12:11 | Ultrasound Report ---
LIMITED ULTRASOUND OF RIGHT BREAST: 05/22/2022 CLINICAL: Patient returns today to evaluate a focal asymmetry in the right breast. Comparison is made to exams dated: 05/22/2022 mammogram, 04/03/2022 mammogram, 10/04/2018 mammogram, mammogram, 07/15/2015 mammogram, and 03/20/2014 mammogram - [facility]. Ultrasound of the right breast 7 o'clock region was performed on the area of interest. Blandon scale im ages of the real-time examination were reviewed. The mass in the right breast at 7 o'clock middle depth seen on mammogram is not seen by ultrasound. IMPRESSION: PROBABLY BENIGN There is no sonographic abnormality seen in the right breast to correspond with the mammographic find ing. Differential considerations include an oil cyst, simple cyst and intramammary lymph node. A follow-up mammogram and a possible ultrasound in 6 months is recommended to demonstrate stability. This exam was interpreted at Station ID: [id number]. Electronically Signed By: Roseann Hammond M.D. lk/:05/22/2022 13:52:01 Ultrasound BI-RADS: 3 Probably benign BI-RADS CATEGORY: (3) - 3 Mammo and US [id number] 6 month follow-up LATERALITY: (B)
--- NOTE | 2022-05-23 12:11 | Mammography Report ---
UNILATERAL RIGHT DIGITAL DIAGNOSTIC MAMMOGRAM 3D/2D: 05/22/2022 CLINICAL: Patient returns today to evaluate a focal asymmetry in the right breast. Comparison is made to exams dated: 04/03/2022 mammogram, 10/04/2018 mammogram, 09/20/2018 mammogram, 05/2015 mammogram, and 03/20/2014 mammogram - [facility]. The right breast is almost entirely fatty (category a/<25% glandular tissue). There is a round mass in the right breast at 7 o'clock middle depth. This is seen in additional view s. No other significant masses or calcifications are seen in the breast. IMPRESSION: INCOMPLETE: NEEDS ADDITIONAL IMAGING EVALUATION The round mass in the right breast is indeterminate. A targeted ultrasound of the right breast is re commended and will be performed immediately following this exam. Based on the Tyrer Cuzick model (a risk assessment model) the patients lifetime risk is 6.3% and her 10 year risk is 2.7%. According to the ACR, ACS, and NCCN guidelines, an annual breast MRI exam gareth g with mammogram is recommended if the patients lifetime risk is 20% or greater. This exam was interpreted at Station ID: [id number]. NOTE: For mammograms, a report in lay terms will be sent to the patient. Approximately 15% of breast malignancies will not be visualized mammographically. In the management of a palpable breast mass, a negative mammogram must not discourage biopsy of a clinically suspicious lesion. Electronically Signed By: Roseann Hammond M.D. lk/:05/22/2022 13:11:07 ACR BI-RADS Category 0: Incomplete 3340F PARENCHYMAL PATTERN: (F) - The breast(s) demonstrate(s) diffuse fatty replacement. BI-RADS CATEGORY: (0) - 0 Ultrasound [id number] Immediate follow-up LATERALITY: (B)
== END 2022-05-22 12:36 | disposition home or self-care (01) ==
LOC: DI 12:35
PROVIDERS: ATTEND Physician Assistant Medical
DX: N63.13 Unspecified lump in the right breast, lower outer quadrant (principal)

== ENCOUNTER 2022-07-21 16:29 | Outpatient (CLI) | payer OTHER | END 2022-07-21 16:30 | disposition left against medical advice (07) | LOC: EMS 16:29 | DX: S20.319A Abrasion of unspecified front wall of thorax, initial encounter (principal); R07.89 Other chest pain; V43.53XA Car driver injured in collision with pick-up truck in traffic accident, initial encounter; Y92.413 State road as the place of occurrence of the external cause ==

== ENCOUNTER 2022-12-21 10:01 | Outpatient (CLI) | payer OTHER ==
--- NOTE | 2022-12-21 12:27 | Mammography Report ---
UNILATERAL RIGHT DIGITAL DIAGNOSTIC MAMMOGRAM 3D/2D: 12/21/2022 CLINICAL: Patient returns for a 6 month follow up of the right breast. Comparison is made to exams dated: 05/22/2022 mammogram, 04/03/2022 mammogram, 10/04/2018 mammogram, mammogram, 07/15/2015 mammogram, and 03/20/2014 mammogram - [facility]. The right breast is almost entirely fatty (category a/<25% glandular tissue). The round mass in the right breast at 7 o'clock middle depth is less prominent and was possibly on/ne ar the skin on prior imaging. No previous sonographic correlate. No other significant masses or calcifications are seen in the breast. IMPRESSION: PROBABLY BENIGN The round mass in the right breast at 7 o'clock middle depth is less prominent and was possibly on/ne ar the skin on prior imaging. No previous sonographic correlate. The patient is due for bilateral imaging with mammogram in 6 months. A follow-up mammogram and possib le ultrasound in 6 months is recommended to demonstrate stability. Based on the Tyrer Cuzick model (a risk assessment model) the patients lifetime risk is 6.1% and her 10 year risk is 2.7%. According to the ACR, ACS, and NCCN guidelines, an annual breast MRI exam gareth g with mammogram is recommended if the patients lifetime risk is 20% or greater. This exam was interpreted at Station ID: [id number]. NOTE: For mammograms, a report in lay terms will be sent to the patient. Approximately 15% of breast malignancies will not be visualized mammographically. In the management of a palpable breast mass, a negative mammogram must not discourage biopsy of a clinically suspicious lesion. Electronically Signed By: Fercho Medina M.D. lc/:12/21/2022 10:49:47 ACR BI-RADS Category 3: Probably benign 3343F PARENCHYMAL PATTERN: (F) - The breast(s) demonstrate(s) diffuse fatty replacement. BI-RADS CATEGORY: (3) - 3 Mammo and US [id number] 6 month follow-up LATERALITY: (B)
== END 2022-12-21 10:02 | disposition home or self-care (01) ==
LOC: DI 10:01
PROVIDERS: ATTEND Physician Assistant Medical
DX: N63.13 Unspecified lump in the right breast, lower outer quadrant (principal)

== ENCOUNTER 2023-01-15 13:45 | Outpatient (CLI) | payer OTHER | END 2023-01-15 14:00 | disposition home or self-care (01) | LOC: LAB.N 13:45 | PROVIDERS: ATTEND Nurse Practitioner | DX: N39.0 Urinary tract infection, site not specified (principal) | CPT/HCPCS: 87086; 87181 ==

== ENCOUNTER 2023-06-13 12:27 | Outpatient (CLI) | payer OTHER ==
--- NOTE | 2023-06-20 16:18 | Mammography Report ---
BILATERAL DIGITAL DIAGNOSTIC MAMMOGRAM 3D/2D: 06/13/2023 CLINICAL: Patient returns for a 6 month follow up of the right breast, due for bilateral exam. Comparison is made to exams dated: 12/21/2022 mammogram, 05/22/2022 mammogram, 04/03/2022 mammogram, mammogram, 09/20/2018 mammogram, and 07/15/2015 mammogram - [facility]. Both breasts are almost entirely fatty (category a/<25% glandular tissue). There also is a dystrophic calcification in the right breast at 7 o'clock middle depth. This was not seen on prior ultrasound. There are small benign oil cysts in the right breast. No other significant masses, calcifications, or other findings are seen in either breast. IMPRESSION: BENIGN No mammographic evidence of malignancy. Benign dystrophic calcification in the right breast. This likely represents a collapsed oil cyst. A 1 year screening mammogram is recommended. Exam findings were conveyed to the patient. Based on the Tyrer Cuzick model (a risk assessment model) the patients lifetime risk is 6.1% and her 10 year risk is 2.7%. According to the ACR, ACS, and NCCN guidelines, an annual breast MRI exam gareth g with mammogram is recommended if the patients lifetime risk is 20% or greater. This exam was interpreted at Station ID: [id number]. NOTE: For mammograms, a report in lay terms will be sent to the patient. Approximately 15% of breast malignancies will not be visualized mammographically. In the management of a palpable breast mass, a negative mammogram must not discourage biopsy of a clinically suspicious lesion. Electronically Signed By: Wilmer Alas M.D. slc/:06/19/2023 16:23:17 ACR BI-RADS Category 2: Benign Finding(s) 3342F PARENCHYMAL PATTERN: (F) - The breast(s) demonstrate(s) diffuse fatty replacement. BI-RADS CATEGORY: (2) - 2 Mammogram [id number] 1 year screening LATERALITY: (B)
== END 2023-06-13 12:28 | disposition home or self-care (01) ==
LOC: DI 12:27
PROVIDERS: ATTEND Physician Assistant Medical
DX: R92.1 Mammographic calcification found on diagnostic imaging of breast (principal)

== ENCOUNTER 2023-09-11 10:55 | Outpatient (CLI) | payer OTHER ==
--- NOTE | 2023-09-11 13:58 | DEXA Report ---
PROCEDURE: Dexa Spine and/or Hip INDICATIONS: POST MENOPAUSAL TECHNIQUE: Dual energy x-ray absorptiometry (DXA) was performed on a [employer] System. Regions measur ed are the AP Spine, femoral neck, and if needed forearm. COMPARISON: none FINDINGS: Lumbar Spine: Bone Mineral Density: 1.236 g/cm/cm,T score: 0.5. Left Femoral Neck: Bone Mineral Density: 0.766 g/cm/cm, T score: -2. Left Hip: Bone Mineral Density: 0.861 g/cm/cm,T score: -1.2. (T score greater or equal to -1.0: NORMAL) (T score from -1.1 to -2.4: OSTEOPENIA) (T score less than or equal to -2.5 to: OSTEOPOROSIS) Impression: By WHO criteria, this patient has moderate osteopenia in the femoral neck, minimal in the left hip. Patients with diagnosis of osteoporosis or osteopenia should have regular bone mineral density assess ment. For those eligible for Medicare, routine testing is allowed once every 2 years. Testing frequ ency can be increased for patients who have rapidly progressing disease or for those who are receivin g medical therapy to restore bone mass. Reviewed by: Sudha Reddy MD on 09/11/2023 1:57 PM PST Approved by: Sudha Reddy MD on 09/11/2023 1:57 PM PST Station ID: [id number]
== END 2023-09-11 10:56 | disposition home or self-care (01) ==
LOC: DI 10:55
PROVIDERS: ATTEND Physician Assistant Medical
DX: Z78.0 Asymptomatic menopausal state (principal); M85.88 Other specified disorders of bone density and structure, other site

== ENCOUNTER 2023-12-03 16:15 | Outpatient (CLI) | payer OTHER ==
[2023-12-03 20:45] LABS: BASOPHILS % (AUTO) 0.4 %; EOSINOPHILS # (AUTO) 0.2 10^3/uL (0.0-0.7); EOSINOPHILS % (AUTO) 2.2 %; HCT - HEMATOCRIT 48.7 % (37.0-47.0); LYMPHOCYTES # (AUTO) 1.3 10^3/uL (1.5-3.5); LYMPHOCYTES % (AUTO) 18.3 %; MEAN CORPUSCULAR HEMOGLOBIN 28.5 pg (27.0-31.0); MEAN CORPUSCULAR HGB CONC 30.8 g/dL (32.0-36.0); MEAN CORPUSCULAR VOLUME 92.6 fL (81.0-99.0); MEAN PLATELET VOLUME 10.2 fL (7.9-10.8); MONOCYTES # (AUTO) 0.4 10^3/uL (0.0-1.0); MONOCYTES % (AUTO) 5.6 %; NEUTROPHILS # (AUTO) 5.1 10^3/uL (1.5-6.6); NEUTROPHILS % (AUTO) 73.4 %; PLT - PLATELET COUNT 249 10^3/uL (130-450); RED BLOOD COUNT 5.26 10^6/uL (4.20-5.40); WHITE BLOOD COUNT 6.9 x10^3/uL (4.8-10.8)
== END 2023-12-03 16:30 | disposition home or self-care (01) ==
LOC: LAB.N 16:15
PROVIDERS: ATTEND Physician Assistant Medical
DX: S20.222A Contusion of left back wall of thorax, initial encounter (principal)
CPT/HCPCS: 36415; 85025

== ENCOUNTER 2024-01-18 07:17 | Outpatient (CLI) | payer OTHER | END 2024-01-18 23:59 | disposition critical access hospital (66) | LOC: EMS 07:17 | DX: M25.512 Pain in left shoulder (principal); R07.89 Other chest pain | CPT/HCPCS: A0425; A0427 ==

== ENCOUNTER 2024-01-18 07:50 | Emergency (ER) | payer OTHER ==
[2024-01-18 08:17] LABS: BASOPHILS % (AUTO) 0.4 %; EOSINOPHILS # (AUTO) 0.2 10^3/uL (0.0-0.7); EOSINOPHILS % (AUTO) 3.4 %; HCT - HEMATOCRIT 42.5 % (37.0-47.0); HGB - HEMOGLOBIN 13.2 g/dL (12.0-16.0); LYMPHOCYTES % (AUTO) 22.7 %; MEAN CORPUSCULAR HEMOGLOBIN 29.1 pg (27.0-31.0); MEAN CORPUSCULAR HGB CONC 31.1 g/dL (32.0-36.0); MEAN CORPUSCULAR VOLUME 93.8 fL (81.0-99.0); MEAN PLATELET VOLUME 9.6 fL (7.9-10.8); MONOCYTES # (AUTO) 0.3 10^3/uL (0.0-1.0); MONOCYTES % (AUTO) 7.4 %; NEUTROPHILS # (AUTO) 2.9 10^3/uL (1.5-6.6); NEUTROPHILS % (AUTO) 65.9 %; PLT - PLATELET COUNT 185 10^3/uL (130-450); RED BLOOD COUNT 4.53 10^6/uL (4.20-5.40); RED CELL DISTRIBUTION WIDTH 13.2 % (12.0-15.0); WHITE BLOOD COUNT 4.5 x10^3/uL (4.8-10.8)
[2024-01-18 08:35] LABS: ALBUMIN 3.8 g/dL (3.2-5.5); ALBUMIN/GLOBULIN RATIO 1.5 (1.0-2.2); BILIRUBIN,TOTAL 0.4 mg/dL (0.2-1.0); CALCIUM 8.8 mg/dL (8.5-10.3); CREATININE 0.6 mg/dL (0.6-1.3); POTASSIUM 3.5 mmol/L (3.5-4.5); TOTAL PROTEIN 6.4 g/dL (6.4-8.9)
[2024-01-18 08:38] LABS: TROPONIN I HIGH SENSITIVITY 4.3 ng/L (2.3-14.8)
--- NOTE | 2024-01-18 08:53 | XRAY Report ---
PROCEDURE: Chest 1V INDICATIONS: Chest pain TECHNIQUE: One view of the chest was acquired. COMPARISON: None. FINDINGS: Surgical changes and devices: None. Lungs and pleura: No pleural effusions or pneumothorax. Lungs are clear. Mediastinum: Mediastinal contours appear normal. Heart size is normal. Bones and chest wall: No suspicious bony lesions. Overlying soft tissues appear unremarkable. IMPRESSION: No acute cardiopulmonary process. Reviewed by: Soren lBack MD on 01/18/2024 8:51 AM PDT Approved by: Soren Black MD on 01/18/2024 8:51 AM PDT Station ID: [id number]
--- NOTE | 2024-01-18 10:30 | ED Physician Documentation ---
PD HPI CHEST PAIN - Stated complaint Stated Complaint: CHEST PX,L SHOULDER PX - Chief complaint Chief Complaint: Cardiac - History obtained from History obtained from: Patient - Additional information Additional information: The patient comes to the emergency department chief complaint of left shoulder pain for the last 3 days that has been fairly constant over the last approximately 24 hours. She states it hurts worse when she moves her arm around the shoulder joint. She states all her joints hurt because she feels as though she is having a lupus flareup, but the left shoulder is the worst. She states she also feels the pain in her chest. She does not have any cardiac history that she knows of. She called her clinical exercise physiologist who ordered some blood work to be done a couple of days ago, and she states her clinical exercise physiologist got back to her and told her that everything looks good. 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 The patient is otherwise without any associated symptoms such as shortness of breath or nausea. She states she just has felt generally unwell for the last couple of weeks. No other complaints at this time. No fevers. PD PAST MEDICAL HISTORY - Past Medical History Past Medical History: Yes Cardiovascular: None, Other Respiratory: None Neuro: Head injury Endocrine/Autoimmune: Systemic lupus erythematosus, Other GI: None [employer]: Other : Other HEENT: Chronic vision loss Psych: Depression, Anxiety Musculoskeletal: Osteoarthritis Derm: Other - Past Surgical History Past Surgical History: Yes Ortho: Knee replacement, Other /[employer]: Hysterectomy, Other - Present Medications Home Medications: Ambulatory Orders Medication Instructions Recorded Confirmed amLODIPine [Norvasc] 5 mg PO DAILY 09/02/13 01/18/24 Pilocarpine HCl 5 mg PO BID 06/02/14 01/18/24 Atomoxetine HCl [Strattera] 25 mg PO DAILY 04/20/20 01/18/24 Sertraline [Zoloft] 50 mg PO DAILY 04/20/20 01/18/24 HYDROcod/ACETAM 5/325 [Scio 5/325] 1 - 2 tablet PO Q6H PRN #14 tablet 01/18/24 predniSONE [Deltasone] 10 mg PO [id number] #42 tab 01/18/24 - Allergies Allergies/Adverse Reactions: Allergies Allergy/AdvReac Type Severity Reaction Status Date / Time Sulfa (Sulfonamide Allergy Intermediate Hives Verified 01/18/24 08:04 Antibiotics) amoxicillin Allergy Nausea Verified 01/18/24 08:04 - Social History Does the pt smoke?: No Smoking Status: Never smoker Does the pt drink ETOH?: No Does the pt have substance abuse?: No - Immunizations Immunizations are current?: Yes Immunizations: TDAP current <10years (Last tetanus booster about 8 years ago.) - POLST Patient has POLST: No POLST Status: Full Code PD ED PE NORMAL - Vitals Vital signs reviewed: Yes - General General: Alert and oriented X 3, No acute distress, Well developed/nourished - HEENT HEENT: Atraumatic, EOMI, Moist mucous membranes - Neck Neck: Supple, no meningeal sign - Cardiac Cardiac: RRR, No murmur - Respiratory Respiratory: No respiratory distress, Clear bilaterally - Abdomen Abdomen: Soft, Non tender, Non distended - Derm Derm: Normal color, Warm and dry, No rash - Extremities Extremities: No deformity, Other (Pain with range of motion left shoulder. Limited range of motion secondary to pain.) - Neuro Neuro: Alert and oriented X 3 - Psych Psych: Normal mood, Normal affect Results - Vitals Vitals: Vital Signs - 24 hr 01/18/24 07:59 Temperature 36.6 C Heart Rate 75 Respiratory 14 Rate Blood Pressure 127/75 O2 Saturation 97 Oxygen O2 Source Room air - EKG (time done) 0802 EKG releavant findings:: EKG personally interpreted by author of this note. Relevant findings are: Rate: Rate (enter#) (73) Rhythm: NSR [place]: Normal Intervals: Normal [place] QRS: Normal Ischemia: Normal ST segments Compare to prior EKG: Old EKG unavailable Computer interpretation: Agree with computer - Labs Labs: Laboratory Tests 01/18/24 01/18/24 08:13 08:13 WBC 4.5 L RBC 4.53 Hgb 13.2 Hct 42.5 MCV 93.8 MCH 29.1 MCHC 31.1 L RDW 13.2 Plt Count 185 MPV 9.6 Neut # (Auto) 2.9 Lymph # (Auto) 1.0 L Fleming # (Auto) 0.3 Eos # (Auto) 0.2 Baso # (Auto) 0.0 Absolute Nucleated RBC 0.00 Nucleated RBC % 0.0 Sodium 141 Potassium 3.5 Chloride 107 Carbon Dioxide 31 Anion Gap 3.0 L BUN 9 Creatinine 0.6 Estimated GFR (MDRD) 101 Glucose 98 Calcium 8.8 Total Bilirubin 0.4 AST 15 ALT 5 L Alkaline Phosphatase 66 Troponin I High Sens 4.3 Total Protein 6.4 Albumin 3.8 Globulin 2.6 Albumin/Globulin Ratio 1.5 Lipase 55 - Rads (name of study) chest XR Relevant Findings:: Final report received, See rad report (No acute findings) PD Medical Decision Making - ED course Complexity details: reviewed results, re-evaluated patient, considered differential, d/w patient ED course: The patient's workup including labs and EKG was unremarkable. The patient had had continuous pain for 24 hours and I felt that at this point, if she was going to have an elevated troponin, we would see it by now. Furthermore, the patient had pain with range of motion of her left shoulder that reproduce the pain she was feeling and I felt this more likely to be a musculoskeletal issue, most likely from her lupus flare, then it was a cardiac issue. As such, I did not feel a repeat troponin needed to be done. The patient was given prescriptions for symptomatic management at home. We have discussed the usual indications for return. She has been in close contact with her clinical exercise physiologist and is encouraged to continue to do so. Departure - Departure Disposition: Home, Self Care Clinical Impression: Exacerbation of systemic lupus Shoulder pain Qualifiers: Chronicity: acute Laterality: left Qualified Code(s): M25.512 - Pain in left shoulder Chest pain Qualifiers: Chest pain type: unspecified Qualified Code(s): R07.9 - Chest pain, unspecified Condition: Stable Instructions: ED Systemic Lupus Erythematosis Prescriptions: predniSONE [Deltasone] 10 mg PO [id number] #42 tab HYDROcod/ACETAM 5/325 [[place]io 5/325] 1 - 2 tablet PO Q6H PRN #14 tablet PRN Reason: Pain Comments: Your labs and EKG look good. There is no evidence of a cardiac issue causing your pain. Most likely, your left shoulder is flared up from your general lupus flare, and this is indicated by the fact that your pain is worse whenever you move your shoulder around. I have sent prescriptions for pain medication and a steroid to the [facility] pharmacy in [place]. Please pick these up today and take them according to directions. Please follow-up with your primary doctor and your clinical exercise physiologist as needed. If you develop increasing chest pain especially associated with shortness of breath and nausea, please return to the emergency department.
[2024-01-18 11:00] VITALS: BP 136/85; O2SAT 99
== END 2024-01-18 10:52 | disposition home or self-care (01) ==
LOC: EDUNIT# → ED 07:50
DX: M32.9 Systemic lupus erythematosus, unspecified (principal); R07.89 Other chest pain
CPT/HCPCS: 36415; 80053; 83690; 84484; 85025; 93005; 99284